=== PATIENT | female | born 1940 | race Caucasian/White ===

== ENCOUNTER 2018-05-02 10:30 | Day surgery (SDC) | payer MEDICARE ==
[~2018-05-02] VITALS: Ht 167.6 cm; Wt 90.3 kg
[~2018-05-02 10:30] MED LIST: ACET325 PO; ASPI325 PO; ASPI81CH; Aspirin EC81 MG PO; BACL10 PO; CALCA500CH; CHOL10002 PO; Flecainide Ace150 MG PO; IBUHYD; LEVSOD50; LEVSOD50 PO; LEVSOD75 PO; LEVSOD88; MAGCHL64ER PO; METO25ER PO; METO50ER PO; NEBI10 PO; PREMARIN; PSYL5.85P; Prilosec Otc20 MG PO; TRAZ50; TUMS PO; WARF5 PO
--- NOTE | 2018-05-02 11:03 | NUR ---
Patient up to Ambulate independently. Gait steady. Surgical site prepped with 2% Chlorhexidine cloth wipe. History, Chart, Medications and Allergies reviewed before start of procedure.Lungs clear T/O to Auscultation. Patient confirms NPO status and agrees with scheduled surgery. Pre-Op teaching done. Pt verbalizes understanding. Patient reports completing Chlorhexadine shower X2 prior to admission to hospital.
--- NOTE | 2018-05-02 18:26 | NUR ---
SHIFT SUMMARY PT ALERT AND ORIENTED SINCE ARRIVAL TO ROOM POST-OP. HER PAIN WAS ELEVATED UPON ARRIVAL TO THE ROOM, HAS BEEN MANAGED WITH PO PAIN MEDICATION. SHE HAS BEEN OOB TO THE BSC AND THE CHIAR. SHE IS A 1 ASSIST WHEN OOB. PT DENIES NAUSEA, TOLERATING PO WELL. VOIDING WELL. VSS. WILL MONITOR UNTIL REPORT TO ONCOMING RN.
[2018-05-03 05:57] LABS: BASOPHILS ABSOLUTE AUTO 0.01 K/mm3 (0.00-0.23); BASOPHILS PERCENT AUTO 0 % (0-2); EOSINOPHILS PERCENT AUTO 0 % (0-6); Hematocrit 32.4 % (33.0-51.0); IMMATURE GRAN ABSOLUTE AUTO 0.03 K/mm3 (0.00-0.10); IMMATURE GRAN PERCENT AUTO 0 % (0-1); LYMPHOCYTES ABSOLUTE AUTO 0.65 K/mm3 (0.84-5.20); LYMPHOCYTES PERCENT AUTO 5 % (21-46); MONOCYTES ABSOLUTE AUTO 0.53 K/mm3 (0.16-1.47); MONOCYTES PERCENT AUTO 4 % (4-13); Mean Corpuscular HGB 31.4 pg (26.0-34.0); Mean Corpuscular Volume 93 fL (80-100); Mean Platelet Volume 9.8 fL (9.1-12.4); NEUTROPHILS ABSOLUTE AUTO 10.91 K/mm3 (1.96-9.15); NEUTROPHILS PERCENT AUTO 90 % (41-73); Platelet Count 223 K/mm3 (150-400); RDW Coefficient Variation 11.9 % (11.7-14.2); RDW Standard Deviation 40.6 fL (35.1-46.3); White Blood Cell Count 12.13 K/mm3 (4.00-11.30)
--- NOTE | 2018-05-03 05:59 | NUR ---
SUMMARY: POD [address] DE LA ROSA. VSS, AFEBRILE, PAIN WELL CONTROLLED WITH PRN OCYCODONE AND SCHEDULED MEDS. PT VOIDING CLEAR YELLOW, AND 1 ASSIST WITH FWW FOR BRP. TOLERATING REG DIET AND DENIES N/V. ANTICIPATE PT/OT THIS DAY AND POSSIBLE DC LATER THIS DAY.
[2018-05-03 06:22] LABS: Anion Gap 7 mmol/L (6-16); Blood Urea Nitrogen 15 mg/dL (8-24); Bun/Creatinine Ratio 25.3 (12.0-20.0); CO2, Blood 26 mmol/L (21-32); Calcium, Blood 8.7 mg/dL (8.5-10.1); Chloride, Blood 101 mmol/L (98-108); Creatinine, Blood 0.59 mg/dL (0.40-1.00); Glomerular Filtration Rate >60 (60-); Glucose, Blood 135 mg/dL (70-99); Sodium, Blood 134 mmol/L (136-145)
--- NOTE | 2018-05-03 08:03 | NUR ---
05/03/18 0803 Letty Campbell VERIFICATIONS: EDIT CHART.
[2018-05-03] MEDS ORDERED: ASPI325 PO (11:15)
[2018-05-03] MEDS ORDERED: Percocet 5-3251 EACH PO (11:17)
--- NOTE | 2018-05-03 15:04 | NUR ---
assumed care of pt, recvd report, pt sitting up in chair awaiting ride home form sister. when sister arrives, discharge teaching will provide teaching and discharge
== END 2018-05-03 15:20 | disposition home or self-care (01) ==
LOC: ORSCMMR 10:30 → ORD 13:00 → ORSCMMR 16:00 → SURS 16:00 → ORSCMMR 05-03 15:20
PROVIDERS: Orthopaedic Surgery
PROC: 0SRC0JA Replacement of Right Knee Joint with Synthetic Substitute, Uncemented, Open Approach (ICD-10-PCS; principal; 2018-05-02 12:00)
DX: M17.11 Unilateral primary osteoarthritis, right knee (principal); Z01.818 Encounter for other preprocedural examination; I10 Essential (primary) hypertension; I48.91 Unspecified atrial fibrillation; E03.9 Hypothyroidism, unspecified; K21.9 Gastro-esophageal reflux disease without esophagitis; Z79.82 Long term (current) use of aspirin; Z79.899 Other long term (current) drug therapy
CPT/HCPCS: 36415; 73560-RT; 80048; 85025; 86850; 86900; 86901; 88300; 97110; 97116; 97162; 97530; C1776; J0171; J0690; J0735; J1100; J1885; J2370; J2405; J2765; J2795; J3010; J7120

== ENCOUNTER 2018-06-09 19:32 | Emergency (ER) | payer MEDICARE ==
[~2018-06-09] VITALS: Ht 167.6 cm; Wt 90.7 kg
[~2018-06-09 19:32] MED LIST changes: +Percocet 5-3251 EACH PO
[2018-06-09] MEDS ORDERED: ASPI81CH PO (19:46)
[2018-06-09 19:58] LABS: BASOPHILS ABSOLUTE AUTO 0.01 K/mm3 (0.00-0.23); BASOPHILS PERCENT AUTO 0 % (0-2); EOSINOPHILS ABSOLUTE AUTO 0.07 K/mm3 (0.00-0.68); EOSINOPHILS PERCENT AUTO 1 % (0-6); Hematocrit 32.8 % (33.0-51.0); Hemoglobin 10.6 g/dL (11.5-16.0); IMMATURE GRAN ABSOLUTE AUTO 0.01 K/mm3 (0.00-0.10); IMMATURE GRAN PERCENT AUTO 0 % (0-1); LYMPHOCYTES ABSOLUTE AUTO 1.32 K/mm3 (0.84-5.20); LYMPHOCYTES PERCENT AUTO 25 % (21-46); MONOCYTES PERCENT AUTO 10 % (4-13); Mean Corpuscular HGB 29.9 pg (26.0-34.0); Mean Corpuscular HGB Conc 32.3 g/dL (31.5-36.5); Mean Corpuscular Volume 93 fL (80-100); Mean Platelet Volume 8.9 fL (9.1-12.4); NEUTROPHILS ABSOLUTE AUTO 3.28 K/mm3 (1.96-9.15); NEUTROPHILS PERCENT AUTO 63 % (41-73); Platelet Count 298 K/mm3 (150-400); RDW Coefficient Variation 12.8 % (11.7-14.2); RDW Standard Deviation 43.9 fL (35.1-46.3); Red Blood Cell Count 3.54 M/mm3 (3.80-5.20); White Blood Cell Count 5.19 K/mm3 (4.00-11.30)
[2018-06-09 20:17] LABS: Alanine Aminotransfer (ALT/SGP 20 U/L (12-78); Albumin, Blood 3.8 g/dL (3.4-5.0); Albumin/Globulin Ratio 1.1 (0.8-1.8); Alk Phos 107 U/L (50-136); Anion Gap 9 mmol/L (6-16); Aspartate Aminotrans (AST/SGOT 14 U/L (12-37); Bilirubin, Total 0.4 mg/dL (0.1-1.0); Blood Urea Nitrogen 14 mg/dL (8-24); Bun/Creatinine Ratio 20.3 (12.0-20.0); CO2, Blood 23 mmol/L (21-32); Calcium, Blood 8.4 mg/dL (8.5-10.1); Chloride, Blood 105 mmol/L (98-108); Creatinine, Blood 0.69 mg/dL (0.40-1.00); Globulin, Blood 3.4 g/dL (2.2-4.0); Glomerular Filtration Rate >60 (60-); Glucose, Blood 104 mg/dL (70-99); Potassium, Blood 3.9 mmol/L (3.5-5.5); Sodium, Blood 137 mmol/L (136-145); Total Protein, Blood 7.2 g/dL (6.4-8.2); Troponin I <0.015 ng/mL (0.000-0.040)
== END 2018-06-09 22:50 | disposition home or self-care (01) ==
LOC: ER 19:32
PROVIDERS: Emergency Medicine
DX: I48.0 Paroxysmal atrial fibrillation (principal); D64.9 Anemia, unspecified; Z88.7 Allergy status to serum and vaccine; Z88.5 Allergy status to narcotic agent; Z79.899 Other long term (current) drug therapy; Z79.82 Long term (current) use of aspirin; E03.9 Hypothyroidism, unspecified; Z86.73 Personal history of transient ischemic attack (TIA), and cerebral infarction without residual deficits
CPT/HCPCS: 36415; 71046; 71260; 80053; 84484; 85025; 93005; 93010; 99285-25; Q9967

== ENCOUNTER → 2018-07-03 | Outpatient (CLI) | payer MEDICARE ==
[~2018-07-03] MED LIST changes: +ASPI81CH PO; +Aspir 8181 MG PO; +Calcium Carbon500 M1 PO; +OMEPRAZOLE MAGN20 MG PO; +Synthroid75 MCG PO; +Vitamin D2000 UNIT PO
[2018-07-03 11:56] LABS: Bilirubin, Urine Neg (Neg); Blood, Urine 2+ (Neg); Glucose Qualitative, Urine Neg (Neg); Ketones, Urine Neg (Neg); Leukocyte Esterase, Urine 3+ (Neg); Nitrite, Urine Neg (Neg); Protein, Urine 1+ (Neg); Urobilinogen, Urine 1+ (Normal)
[2018-07-03 12:08] LABS: Appearance, Urine Clear (Clear); Color, Urine Yellow (P-Yellow)
[2018-07-03 12:14] LABS: Bacteria Mod /hpf; Mucus Mod (0-Heavy); Red Blood Cells, Urine 0-2 /hpf (0-2); Squamous Epithelial Cells Many /hpf (Few)
[2018-07-03 12:15] LABS: Transitional Epithelial Cells Few /hpf (0-Rare)
== END | disposition home or self-care (01) ==
LOC: LAB SHORT 09:00 → LAB SRC 09:00
DX: E03.9 Hypothyroidism, unspecified (principal); I48.91 Unspecified atrial fibrillation
CPT/HCPCS: 81001

== ENCOUNTER 2018-07-11 12:16 | Day surgery (SDC) | payer MEDICARE ==
[~2018-07-11] VITALS: Ht 167.6 cm; Wt 90.7 kg
== END 2018-07-11 14:48 | disposition home or self-care (01) ==
LOC: ORSCSDS 12:16
PROVIDERS: Ophthalmology
PROC: 08RK3JZ Replacement of Left Lens with Synthetic Substitute, Percutaneous Approach (ICD-10-PCS; principal; 2018-07-11 14:00)
DX: H25.12 Age-related nuclear cataract, left eye (principal); H21.81 Floppy iris syndrome; I10 Essential (primary) hypertension; E03.9 Hypothyroidism, unspecified; I48.91 Unspecified atrial fibrillation; Z79.82 Long term (current) use of aspirin; Z79.899 Other long term (current) drug therapy
CPT/HCPCS: J2001; J2250; J3010; V2632

== ENCOUNTER 2019-02-05 08:49 | Emergency (ER) | payer MEDICARE ==
[~2019-02-05] VITALS: Ht 165.1 cm; Wt 90.7 kg
[~2019-02-05 08:49] MED LIST changes: +Flecainide Acet50 MG PO
[2019-02-05 09:43] LABS: BASOPHILS ABSOLUTE AUTO 0.02 K/mm3 (0.00-0.23); BASOPHILS PERCENT AUTO 0 % (0-2); EOSINOPHILS ABSOLUTE AUTO 0.13 K/mm3 (0.00-0.68); EOSINOPHILS PERCENT AUTO 3 % (0-6); Hemoglobin 12.2 g/dL (11.5-16.0); IMMATURE GRAN PERCENT AUTO 0 % (0-1); LYMPHOCYTES ABSOLUTE AUTO 1.33 K/mm3 (0.84-5.20); LYMPHOCYTES PERCENT AUTO 29 % (21-46); MONOCYTES ABSOLUTE AUTO 0.42 K/mm3 (0.16-1.47); MONOCYTES PERCENT AUTO 9 % (4-13); Mean Corpuscular HGB 27.8 pg (26.0-34.0); Mean Corpuscular HGB Conc 32.1 g/dL (31.5-36.5); Mean Corpuscular Volume 87 fL (80-100); Mean Platelet Volume 9.9 fL (9.1-12.4); NEUTROPHILS ABSOLUTE AUTO 2.63 K/mm3 (1.96-9.15); NEUTROPHILS PERCENT AUTO 58 % (41-73); Platelet Count 283 K/mm3 (150-400); RDW Coefficient Variation 13.9 % (11.7-14.2); RDW Standard Deviation 43.7 fL (35.1-46.3); Red Blood Cell Count 4.39 M/mm3 (3.80-5.20); White Blood Cell Count 4.53 K/mm3 (4.00-11.30)
[2019-02-05 10:07] LABS: Alanine Aminotransfer (ALT/SGP 21 U/L (12-78); Albumin, Blood 4.1 g/dL (3.4-5.0); Albumin/Globulin Ratio 1.2 (0.8-1.8); Alk Phos 83 U/L (50-136); Anion Gap 7 mmol/L (6-16); Aspartate Aminotrans (AST/SGOT 18 U/L (12-37); Bilirubin, Total 0.8 mg/dL (0.1-1.0); Blood Urea Nitrogen 15 mg/dL (8-24); Bun/Creatinine Ratio 20.5 (12.0-20.0); CO2, Blood 25 mmol/L (21-32); Calcium, Blood 9.1 mg/dL (8.5-10.1); Chloride, Blood 107 mmol/L (98-108); Creatinine, Blood 0.73 mg/dL (0.40-1.00); Globulin, Blood 3.4 g/dL (2.2-4.0); Glomerular Filtration Rate >60 (60-); Glucose, Blood 97 mg/dL (70-99); Potassium, Blood 3.9 mmol/L (3.5-5.5); Sodium, Blood 139 mmol/L (136-145); Total Protein, Blood 7.5 g/dL (6.4-8.2); Troponin I <0.015 ng/mL (0.000-0.040)
[2019-02-05] MEDS ORDERED: Toprol Xl25 MG PO (13:19)
== END 2019-02-05 13:38 | disposition home or self-care (01) ==
LOC: ER 08:49
PROVIDERS: Emergency Medicine
DX: R07.9 Chest pain, unspecified (principal); E03.9 Hypothyroidism, unspecified; Z88.5 Allergy status to narcotic agent; Z88.7 Allergy status to serum and vaccine; Z79.899 Other long term (current) drug therapy; Z79.82 Long term (current) use of aspirin
CPT/HCPCS: 36415; 71046; 80053; 83690; 83880; 84484; 85025; 93005; 93010; 99284-25

== ENCOUNTER 2019-02-12 01:34 | Observation (INO) | payer MEDICARE ==
[~2019-02-12] VITALS: Ht 167.6 cm; Wt 92.8 kg
[~2019-02-12 01:34] MED LIST changes: +Toprol Xl25 MG PO
[2019-02-12] MEDS ORDERED: AMIODARONE HCL100 MG PO (01:49)
[2019-02-12] MEDS ORDERED: XARELTO20 MG PO (01:49)
[2019-02-12 02:00] LABS: Calcium, Ionized (POC) 1.16 mmol/L (1.10-1.46); Chloride (POC) 105 mmol/L (98-108); Creatinine (POC) 0.8 mg/dL (0.6-1.0); Glucose (ISTAT POC) 94 mg/dL (70-99); Hemoglobin (POC) 10.5 g/dL (12.0-16.0); Potassium (POC) 3.7 mmol/L (3.5-5.5); Sodium (POC) 140 mmol/L (135-148); Total CO2 (POC) 24 mmol/L (21-32)
[2019-02-12 02:04] LABS: Hematocrit 35.8 % (33.0-51.0); Hemoglobin 11.4 g/dL (11.5-16.0); Mean Corpuscular HGB 28.1 pg (26.0-34.0); Mean Corpuscular HGB Conc 31.8 g/dL (31.5-36.5); Mean Corpuscular Volume 88 fL (80-100); Mean Platelet Volume 9.9 fL (9.1-12.4); Platelet Count 242 K/mm3 (150-400); RDW Coefficient Variation 14.1 % (11.7-14.2); RDW Standard Deviation 45.6 fL (35.1-46.3); Red Blood Cell Count 4.06 M/mm3 (3.80-5.20); White Blood Cell Count 5.44 K/mm3 (4.00-11.30)
[2019-02-12 02:19] LABS: Alanine Aminotransfer (ALT/SGP 23 U/L (12-78); Albumin/Globulin Ratio 1.3 (0.8-1.8); Alk Phos 81 U/L (50-136); Anion Gap 7 mmol/L (6-16); Aspartate Aminotrans (AST/SGOT 20 U/L (12-37); Bilirubin, Total 0.5 mg/dL (0.1-1.0); Blood Urea Nitrogen 20 mg/dL (8-24); Bun/Creatinine Ratio 25.8 (12.0-20.0); CHOL/HDL RATIO 2.3; CO2, Blood 26 mmol/L (21-32); Chloride, Blood 107 mmol/L (98-108); Cholesterol 161 mg/dL (50-200); Creatinine, Blood 0.78 mg/dL (0.40-1.00); Globulin, Blood 3.1 g/dL (2.2-4.0); Glomerular Filtration Rate >60 (60-); Glucose, Blood 96 mg/dL (70-99); HDL Cholesterol 69 mg/dL (>39); International Normalized Ratio 1.08; Low Density Lipoprotein Chol 72 mg/dL (0-110); Magnesium, Blood 2.1 mg/dL (1.6-2.4); Potassium, Blood 3.9 mmol/L (3.5-5.5); Prothrombin Time Results 11.4 Sec (9.7-11.5); Sodium, Blood 140 mmol/L (136-145); Total Protein, Blood 7.1 g/dL (6.4-8.2); Triglycerides 100 mg/dL (30-160); Troponin I <0.015 ng/mL (0.000-0.040); Very Low Density Lipoprot Chol 20 mg/dL (6-32)
--- NOTE | 2019-02-12 06:00 | NUR ---
PT ADMITTED TO ICU-5 PCU STATUS FOR ACS. PT IS ON HEPARIN GTT, DOSING WAS VERIFIED W Ketty HAMILTON RN. PT IS ALERT & ORIENTED, DENIES PAIN OR OTHER DISCOMFORT. BP IS SL HIGH, 160-180'S SYSTOLIC. ADMIT HX & MED REC COMPLETED. CALL LIGHT IN REACH. REPORT TO DAYSHIFT.
--- NOTE | 2019-02-12 07:16 | NUR ---
ASSUMED CARE: RECEIVED REPORT FROM OMI RN. PT LYING IN BED TALKING TO FRIEND/FAMILY AT BEDSIDE. PT APPEARS TO BE A/O X3. VSS AT THIS TIME. NO TEMP NOTED. HEPARIN RUNNING PER ORDERS AT 13 UNITS/KG/MIN. WILL CONTINUE TO MONITOR AND ASSESS FURTHER.
--- NOTE | 2019-02-12 08:33 | NUR ---
DR BARBOZA: DR LOPEZ TO SEE THE PT. WILL NOT BE GOING FOR ANGIO TODAY. IF ECHO OR TROP IS ELAVATED PT WILL STAY AND POSSIBLY RECEIVE ANGIO ON SUNDAY EVENING OR SUNDAY MORNING. UNABLE TO DO ANGIO UNTIL 48 HOURS AFTER XERELTO DOSE, PT TOOK XERELTO YESTERDAY AROUND 1200.
--- NOTE | 2019-02-12 08:39 | NUR ---
CONCERNS: PT STATES CONCERNS AND WOULD PREFER TO REMAIN IN THE HOSPITAL UNTIL THE ANGIO IS COMPLETE. PT LIVES ALONE AND FEELS THE STRESS ALONE OF THE UNKNOWN WOULD EFFECT HER HEART. SHE STRESSES SOMETHING WILL HAPPEN WITH HER HEART WHILE ALONE AT HOME AND SHE WILL BE UNABLE TO CALL FOR HELP.
--- NOTE | 2019-02-12 11:00 | NUR ---
HEPARIN RESTART: RESTARTED HEPARIN AT THIS TIME AFTER BEING OFF FOR APPROX 1 HOUR. STARTED AT A NEW RATE OF 11 UNITS/KG/HR PER PHARMACY.
--- NOTE | 2019-02-12 11:49 | NUR ---
DR BARBOZA: DR IN TO SEE PT ONCE AGAIN AFTER REVIEWING CHART. EKG IN PROCESS AT THE TIME. DR EDUCATES ON ANGIO AND INFORMS HER THEY WILL BE DOING THE ANGIO TOMORROW AFTER 12PM.
--- NOTE | 2019-02-12 13:00 | NUR ---
Assumed care; Assumed care of patient and introduced self. She has no current needs or chest pain. Call light within reach and positions self in bed. VSS. Friend sin room with patient.
--- NOTE | 2019-02-12 14:14 | NUR ---
Echocardiogram completed.
--- NOTE | 2019-02-12 15:00 | NUR ---
Patient up to bathroom with assist and denies any pain or concerns. Call light within reach. VSS. Remains on RA and sats in the upper 90%'s.
--- NOTE | 2019-02-12 17:17 | NUR ---
PATIENT SITTING UP IN BED EATING DINNER. SHE WAS UP IN ROOM FOR BATHRROM AND DOING AM CARE. VSS. PULLED RIGHT WRIST IV FOR PROCEDURE TOMORROW. PATIENT DENIES ANY NEEDS OR CHEST PAIN
--- NOTE | 2019-02-12 17:51 | NUR ---
Spiritual Care inital note: Per admit trigger, I met with Mrs. Soliman to offer information about advanced care planning. She has a completed AD. Her passed 2 years ago, and she recognizes the need to assign a new MPOA. She would like her son to be her decision maker if she is incapacitated. We completed a POLST. She would like all medical interventions unless there is no hope for meaningful recovery. She denies fear of uncoming proceedure and seems medically shania when it comes to her health. She feels loved and supported by friends and family. she allowed me to pray for a good outcome tomorow. I will remain available.
--- NOTE | 2019-02-12 18:38 | NUR ---
Patient's heparin increased to 12 units/hr. Patient tired of laying in bed and I got her up to chair where she currently resides. She denies any chest pain or current needs.
--- NOTE | 2019-02-12 19:29 | NUR ---
PT SITTING UP IN CHAIR. DENIES PAIN, SOB, AND N/V. REMOVED IV IN R WRIST IN ANTICIPATION OF RADIAL ACCESS SITE FOR LEAD ANDROID DEVELOPER TOMORROW. WILL GET ANOTHER ONE HIGHER UP THE ARM. STILL HAS 18G TO LAC PATENT AND RUNNING HEPARIN. NO SIGN OF DISTRESS. CALL LIGHT IN REACH AND CALLS APPROPRIATELY.
[2019-02-13 04:19] LABS: BASOPHILS ABSOLUTE AUTO 0.02 K/mm3 (0.00-0.23); BASOPHILS PERCENT AUTO 0 % (0-2); EOSINOPHILS ABSOLUTE AUTO 0.15 K/mm3 (0.00-0.68); EOSINOPHILS PERCENT AUTO 3 % (0-6); Hematocrit 35.2 % (33.0-51.0); Hemoglobin 11.3 g/dL (11.5-16.0); IMMATURE GRAN ABSOLUTE AUTO 0.01 K/mm3 (0.00-0.10); IMMATURE GRAN PERCENT AUTO 0 % (0-1); LYMPHOCYTES ABSOLUTE AUTO 1.52 K/mm3 (0.84-5.20); LYMPHOCYTES PERCENT AUTO 30 % (21-46); MONOCYTES ABSOLUTE AUTO 0.46 K/mm3 (0.16-1.47); MONOCYTES PERCENT AUTO 9 % (4-13); Mean Corpuscular HGB 27.9 pg (26.0-34.0); Mean Corpuscular HGB Conc 32.1 g/dL (31.5-36.5); Mean Corpuscular Volume 87 fL (80-100); Mean Platelet Volume 10.1 fL (9.1-12.4); NEUTROPHILS ABSOLUTE AUTO 2.93 K/mm3 (1.96-9.15); NEUTROPHILS PERCENT AUTO 58 % (41-73); Platelet Count 242 K/mm3 (150-400); RDW Coefficient Variation 14.3 % (11.7-14.2); Red Blood Cell Count 4.05 M/mm3 (3.80-5.20); White Blood Cell Count 5.09 K/mm3 (4.00-11.30)
[2019-02-13 04:35] LABS: Anion Gap 7 mmol/L (6-16); Blood Urea Nitrogen 19 mg/dL (8-24); Bun/Creatinine Ratio 23.9 (12.0-20.0); CO2, Blood 26 mmol/L (21-32); Calcium, Blood 8.6 mg/dL (8.5-10.1); Chloride, Blood 108 mmol/L (98-108); Glomerular Filtration Rate >60 (60-); Glucose, Blood 93 mg/dL (70-99); Potassium, Blood 4.1 mmol/L (3.5-5.5); Sodium, Blood 141 mmol/L (136-145)
--- NOTE | 2019-02-13 06:11 | NUR ---
SUMMARY PT RESTING IN BED. DENIES PAIN, N/V, AND SOB. ON HEPARIN GTT. HAS BEEN NPO SINCE MIDNIGHT FOR LAWN CARE SPECIALIST TODAY. GETS UP WITH MINIMAL 1 PERSON ASSIST. NO SIGN OF DISTRESS. CALL LIGHT IN REACH.
--- NOTE | 2019-02-13 07:15 | NUR ---
ASSUMED CARE / DR BARBOZA: REPORT RECEIVED FROM ERICH Parker RN. ASSUMED CARE OF THIS PT AT APPROX 0700. ON ASSESSMENT, THE PT IS A&O, PLEASANT & COOPERATIVE. SHE DENIES CP OR SOB, VSS. HTN NOTED W/ MEDS GIVEN PER EMAR. NO GI COMPLAINTS, VOIDS W/O DIFFICULTY. PROVIDER AT BEDSIDE TO SEE PT, STS TO D/C HEPARIN DRIP & THAT PT WILL BE GOING TO SHIP MANAGER FOR ANGIO EARLY THIS AM. PT HAS DISCUSSED THIS W/ PROVIDER. WILL CONTINUE TO MONITOR & UPDATE NEEDED.
--- NOTE | 2019-02-13 07:49 | NUR ---
HEPARIN INFUSION: HEPARIN HAS BEEN STOPPED & DISCONNECTED FROM PT AT APPROX [address] BARBOZA.
--- NOTE | 2019-02-13 08:12 | NUR ---
MANAGER LAB: PT TAKEN OUT OF ROOM TO MANAGER LAB VIA BED BY HEART CENTER STAFF.
--- NOTE | 2019-02-13 09:25 | NUR ---
PT ARRIVAL BACK TO UNIT FROM GAS ANALYST THIS RN AND QUILL LAYER AT BEDSIDE FOR PRIMARY RN. PT. ALERT AND ORIENTED UPON ARRIVAL. ARM BOARD REMOVED FOR ASSESSMENT OF TR BAND WITH GAS ANALYST STAFF. PT. HAND NOTED TO BE DARK PURPLE AND COOL TO TOUCH. SPO2 PROBE PLACED TO FINGER WITH POOR WAVEFORM PT. ARM BOARD REMOVED AND SIGNIFICANT SWELLING NOTED ABOVE TR BAND, FIRM TO TOUCH. GAS ANALYST STAFF REPORTED THIS WAS CHANGED FROM PLACEMENT. BP CUFF PLACED TO BELOW AC AND INFLATED FOR 1 MIN FOR ASSISTANCE WITH OCCLUSION, WHILE ADDITIONAL GAS ANALYST STAFF DOWN TO DEFLATE AND REPLACE TR BAND. INITIAL TR BAND DEFLATED WITH BP CUFF INFLATED-NO OOZING NOTED AND NEW TR BAND PLACED BY GAS ANALYST STAFF WITH GOOD COLOR RETURN TO DISTAL FINGERS 15CC IN BAND. SECONDARY TR BAND PLACED ABOVE THE INTIAL WITH 10CC OF AIR. DR. BARBOZA NOTIFIED TO COME EVALUATE. GOOD SPO2 WAVEFORM NOTED WITH GOOD COLOR IMPROVEMENT. NO FURTHER SWELLING NOTED. PRIMARY RN UPDATED AND AT BEDSIDE TO EVALUATE.
--- NOTE | 2019-02-13 09:36 | NUR ---
RETURN FROM HEART CENTER: PT BACK TO ROOM ICU-05 FROM AT APPROX 0920. ON RETURN, IT IS NOTED THAT THE PT's R HAND IS DUSKY W/ POOR CAP REFILL & THAT A HEMATOMA HAS DEVELOPED ABOVE THE TR BAND ON R FOREARM. BP CUFF APPLIED TO ELVA & INFLATED WHILE OLD TR BAND REMOVED & REPLACED W/ LONGER TR BAND INFLATED W/ 15 ML AIR. SECONDARY TR BAND APPLIED SLIGHTLY PROXIMAL TO ORIGINAL BAND & INFLATED W/ 10 ML AIR. HEMATOMA IS IMPROVED & PT NOW HAS GOOD PLETH & CAP REFILL < 3 SECONDS TO AFFECTED HAND. ADD 5 ML AIR TO SECONDARY TR BAND FOR A TOTAL OF 15 ML AIR. PLEASE MASSAGE & HOLD MANUAL PRESSURE TO AREA PROXIMAL TO TR BAND SITES FOR APPROX 3-4 MINS W/ 1-2 MINS REST IN BETWEEN SESSIONS FOR APPROX 30 MINS TOTAL, PER DR BARBOZA, & HE WILL BE AT BEDSIDE SHANTE TO EVAL PT.
--- NOTE | 2019-02-13 09:50 | NUR ---
DR BARBOZA: PROVIDER AT BEDSIDE, STS PLACEMENT OF BOTH TR BANDS ARE ADEQUATE & THAT AIR MAY START TO BE RELEASED IN APPROX 1 HR.
--- NOTE | 2019-02-13 11:11 | NUR ---
PATIENT GAVE STUDENT NURSE PERMISSION TO PROVIDE CARE ON 02/13/19.
--- NOTE | 2019-02-13 18:21 | NUR ---
SHIFT SUMMARY: NO ACUTE CHANGES SINCE PRIOR UPDATES. PT REMAINS A&O, PLEASANT & COOPERATIVE. SHE HAS RESTED WELL THIS AFTERNOON & HAS NO C/O CP OR DISCOMFORT. PT ON RA W/ O2 SATS > 92%. MONITOR SHOWS SB-SR W/ BBB, HR 50-60s. PT HAS NO GI/ COMPLAINTS, VOIDS W/O DIFFICULTY. TOLERATING PO INTAKE WELL. WILL CONTINUE TO MONITOR & REPORT OFF TO ONCOMING RN.
--- NOTE | 2019-02-13 19:49 | NUR ---
PT RESTING IN BED. DENIES CP, SOB, AND N/V. PT HAS R RADIAL ACCESS SITE FROM LUCERNE FARMER TODAY. THERE IS BRUISING TO FOREARM AND DOWN INTO FINGERS THAT RANGES FROM DEEP PURPLE TO LIGHT GREEN. SITE IS SOFT NOW, FINGERS ARE WARM TO TOUCH, AND SPO2 READS 97% ON R INDEX FINGER. ARM BOARD IN PLACE AND PT EXHIBITS KNOWLEDGE OF RADIAL ACCESS CARE. CALL LIGHT IN REACH. NO SIGN OF DISTRESS.
--- NOTE | 2019-02-14 00:16 | NUR ---
PT RESTING IN BED. R RADIAL SITE REMAINS UNCHANGED AND STABLE.
[2019-02-14 04:05] LABS: Anion Gap 5 mmol/L (6-16); Blood Urea Nitrogen 18 mg/dL (8-24); CO2, Blood 26 mmol/L (21-32); Calcium, Blood 8.6 mg/dL (8.5-10.1); Chloride, Blood 107 mmol/L (98-108); Creatinine, Blood 0.75 mg/dL (0.40-1.00); Glomerular Filtration Rate >60 (60-); Glucose, Blood 86 mg/dL (70-99); Magnesium, Blood 2.1 mg/dL (1.6-2.4); Potassium, Blood 4.2 mmol/L (3.5-5.5); Sodium, Blood 138 mmol/L (136-145)
--- NOTE | 2019-02-14 06:25 | NUR ---
SUMMARY PT RESTING IN BED. R RADIAL ACCESS SITE FROM JACK MACHINE OPERATOR HAS BEEN STABLE. IT IS BRUISED IN VARIOUS SPOTS FROM FA TO FINGERS. BRUISING RANGES FROM DEEP PURPLE TO LIGHT GREEN. ARM IS STILL SOFT AND DOES NOT HAVE APPEARED TO CHANGE DURING THE NIGHT. ARM BOARD IN PLACE. ABLE TO GET TO BATHROOM WITH MINIMAL ASSIST ALL NIGHT. NO SIGN OF DISTRESS. CALL LIGHT IN REACH.
[2019-02-14] MEDS ORDERED: ATOR40TA PO (11:05)
[2019-02-14] MEDS ORDERED: CLOP75 PO (11:05)
[2019-02-14] MEDS ORDERED: NITR.4SL SL (11:05)
[2019-02-14] MEDS ORDERED: ASPI81CH PO (11:05)
--- NOTE | 2019-02-14 12:08 | NUR ---
PT GIVEN HER DISCHARGE INSTRUCTIONS. MEDICATIONS REVIEWED AND PT HAD XARELTO AND PLAVIX ORDERED. CALLED DR. HDEZ TO CLARIFY AND HE GAVE ORDERS TO STOP THE PLAVIX AND ONLY HAVE PT TAKE XARELTO. DISCHARGE MEDS UPDATED. PT VERBALIZES UNDERSTANDING OF DISCHARGE INSTRUCTIONS. PT'S RIDE WILL BE HERE AT 1300.
--- NOTE | 2019-02-14 13:02 | NUR ---
PT DISCHARGED VIA WC TO PRIVATE VEHICLE. IVS REMOVED. PT AMBULATORY AND WITHOUT CHEST PAIN AT TIME OF DISCHARGE. ALL BELONGINGS SENT HOME WITH PT.
== END 2019-02-14 12:52 | disposition home or self-care (01) ==
LOC: ER 01:34 → ICUW 01:35 → ICUE 01:35 → ICUW 03:58 → ICUE 03:58 → ER 03:58 → ICUE 03:58 → ICUW 04:00 → ICUE 04:00
PROVIDERS: Emergency Medicine; Family Medicine; ADMIT Hospitalist
DX: I24.9 Acute ischemic heart disease, unspecified (principal); I48.91 Unspecified atrial fibrillation; D64.9 Anemia, unspecified; E03.9 Hypothyroidism, unspecified; I10 Essential (primary) hypertension; E55.9 Vitamin D deficiency, unspecified; Z79.01 Long term (current) use of anticoagulants; Z79.899 Other long term (current) drug therapy; Z88.5 Allergy status to narcotic agent; Z88.7 Allergy status to serum and vaccine
CPT/HCPCS: 36415; 71045; 76937; 80047; 80048; 80053; 80061; 83036; 83735; 84484; 85014; 85025; 85027; 85347; 85610; 85730; 86850; 86900; 86901; 93005; 93010; 93306; 93458; 96365-59; 96375-59; 99152; 99285-25; A9270; C1769; C1894; G0378; J1644; J2250; J2270; J2405; J3010; J7030; Q9967

== ENCOUNTER 2019-03-06 02:37 | Inpatient (IN) | payer MEDICARE ==
[~2019-03-06] VITALS: Ht 167.6 cm; Wt 92.8 kg
[~2019-03-06 02:37] MED LIST changes: +AMIODARONE HCL100 MG PO; +ATOR40TA PO; +CLOP75 PO; +NITR.4SL SL; -Synthroid75 MCG PO; +XARELTO20 MG PO
[2019-03-06 03:01] LABS: BASOPHILS ABSOLUTE AUTO 0.03 K/mm3 (0.00-0.23); BASOPHILS PERCENT AUTO 1 % (0-2); EOSINOPHILS ABSOLUTE AUTO 0.13 K/mm3 (0.00-0.68); EOSINOPHILS PERCENT AUTO 2 % (0-6); Hematocrit 22.5 % (33.0-51.0); IMMATURE GRAN ABSOLUTE AUTO 0.02 K/mm3 (0.00-0.10); IMMATURE GRAN PERCENT AUTO 0 % (0-1); LYMPHOCYTES ABSOLUTE AUTO 1.97 K/mm3 (0.84-5.20); LYMPHOCYTES PERCENT AUTO 33 % (21-46); MONOCYTES ABSOLUTE AUTO 0.51 K/mm3 (0.16-1.47); MONOCYTES PERCENT AUTO 8 % (4-13); Mean Corpuscular HGB 27.8 pg (26.0-34.0); Mean Corpuscular HGB Conc 31.1 g/dL (31.5-36.5); Mean Corpuscular Volume 89 fL (80-100); Mean Platelet Volume 9.2 fL (9.1-12.4); NEUTROPHILS ABSOLUTE AUTO 3.39 K/mm3 (1.96-9.15); NEUTROPHILS PERCENT AUTO 56 % (41-73); Platelet Count 299 K/mm3 (150-400); RDW Coefficient Variation 15.5 % (11.7-14.2); RDW Standard Deviation 50.6 fL (35.1-46.3); Red Blood Cell Count 2.52 M/mm3 (3.80-5.20); White Blood Cell Count 6.05 K/mm3 (4.00-11.30)
[2019-03-06 03:22] LABS: Alanine Aminotransfer (ALT/SGP 21 U/L (12-78); Albumin, Blood 3.7 g/dL (3.4-5.0); Albumin/Globulin Ratio 1.4 (0.8-1.8); Alk Phos 67 U/L (50-136); Anion Gap 7 mmol/L (6-16); Aspartate Aminotrans (AST/SGOT 11 U/L (12-37); Bilirubin, Total 0.6 mg/dL (0.1-1.0); Blood Urea Nitrogen 19 mg/dL (8-24); Bun/Creatinine Ratio 23.3 (12.0-20.0); CO2, Blood 26 mmol/L (21-32); Calcium, Blood 8.8 mg/dL (8.5-10.1); Chloride, Blood 109 mmol/L (98-108); Creatinine, Blood 0.82 mg/dL (0.40-1.00); Globulin, Blood 2.7 g/dL (2.2-4.0); Glomerular Filtration Rate >60 (60-); Glucose, Blood 99 mg/dL (70-99); Potassium, Blood 3.6 mmol/L (3.5-5.5); Sodium, Blood 142 mmol/L (136-145); Total Protein, Blood 6.4 g/dL (6.4-8.2); Troponin I <0.015 ng/mL (0.000-0.040)
--- NOTE | 2019-03-06 05:22 | NUR ---
0522 ADMIT: PT ARRIVES TO ROOM 326 VIA GOURNEY FROM ER AND TRANSFERS SELF TO BED; APPEARS STEADY ON FEET. FRIEND, SUPPORT PERSON, AT BEDSIDE. PT AND FRIEND ORIENTED TO BED, ROOM, CALL SYSTEM AND VERBALIZE UNDERSTANDING. CALL LIGHT IN REACH.
--- NOTE | 2019-03-06 07:00 | NUR ---
0700: FIRST UNIT PRBC INFUSION BEGUN INTO 20G RIGHT AC. VSS, AFEBRILE, ROOM AIR, LUNG SOUNDS CLEAR, IV PATENT. PROTONIX DRIP INFUSING 20G LEFT AC. PT DENIES SOB, HEADACHE, DIZZNESS OR PAIN AT IV SITE. CALL LIGHT IN REACH.
[2019-03-06 13:32] LABS: Hematocrit 26.2 % (33.0-51.0); Hemoglobin 8.3 g/dL (11.5-16.0)
--- NOTE | 2019-03-06 17:27 | NUR ---
SHIFT SUMMARY: PT IS A/O X 4 WITH NO C/O PAIN. PT RECEIVED 1 UNIT OF BLOOD THIS MORNING WITH NO ADVERSE REACTION OBSERVED. THE SECOND UNIT IS READY AT THE BLOOD BLANK BUT PER DR MCCAIN IT MAY OR MAY NOT BE GIVEN DEPENDING ON THE H/H THAT IS DUE THIS EVENING. PT CONTINUES ON CLEAR LIQUID DIET. CONSULT WAS CALLED IN TO DR MARTINEZ WHO STOPPED BY THIS ARCADIO AND STATED HE WOULD COME BACK LATER THIS EVENING TO TALK WITH THE PT. PT DENIES ANY NAUSEA OR DIZZINESS. PT IS ABLE TO MAKE HER NEEDS KNOWN AND CALLS FOR HELP WHEN NEEDED.
[2019-03-06 21:14] LABS: Hematocrit 24.2 % (33.0-51.0); Hemoglobin 7.6 g/dL (11.5-16.0)
--- NOTE | 2019-03-07 04:51 | NUR ---
SHIFT SUMMARY PT RECEIVED 1 UNIT OF BLOOD. TOLERATED WELL. PT ANXIOUS ABOUT DIAGNOSIS AT TIMES NEEDS REASSURANCE. PT HAD NO COMPLAINTS OR ISSUES NOTED DURING SHIFT. PT CURRENTLY SLEEPING, BREATHING EASY AND CALL LIGHT IN REACH
[2019-03-07 05:37] LABS: Hematocrit 27.2 % (33.0-51.0); Hemoglobin 8.7 g/dL (11.5-16.0)
[2019-03-07 16:23] LABS: Hematocrit 30.7 % (33.0-51.0); Hemoglobin 9.9 g/dL (11.5-16.0)
--- NOTE | 2019-03-07 16:46 | NUR ---
Ambulatory in Day SurgeryLungs clear T/O to Auscultatio. History, Chart, Medications and Allergies reviewed before start of procedure.Patient confirms NPO status and agrees with scheduled surgery. Pre-Op teaching done. Pt verbalizes understanding.
--- NOTE | 2019-03-07 16:57 | NUR ---
03/07/19 1655 Bandar Eason PATIENT DETERMINED TO BE ASA APPROPRIATE FOR PROPOFOL SEDATION PRIOR TO START OF PROCEDURE BY 3-LEAD EKG REVIEWED WITH PHYSICIAN PRIOR TO START OF PROCEDURE.Patient to ENDO 1History, Chart, Medications and Allergies reviewed before start of procedure.Glasses RemovedMONITOR INTACT WITH CONTINUOUS PULSE OXIMETRY AND INTERMITTENT BP.O2 VIA N/C INTACT THROUGHOUT SEDATION/PROCEDURE.
--- NOTE | 2019-03-07 18:15 | NUR ---
return from day surg report rec from francisca rn, pt returned to room via clemencia @ 1750, family at bedside, pt denies pain, only c/o gas, sitting up eating clears dinner
--- NOTE | 2019-03-07 18:51 | NUR ---
SHIFT SUMMARY DAGOBERTO AKHTAR COMPLETED THIS SHIFT, DR MARTINEZ CONSULTED W/PT AFTER ROOMED, NO ACUTE CHANGES THIS SHIFT, NO C/O ANY KIND, PT SITTING UP IN BED W/VISITOR @ BEDSIDE, WILL CONT TO MONITOR UNTIL REPORT GIVEN TO OMI RN.
--- NOTE | 2019-03-08 00:02 | NUR ---
PT COMPLAINING OF PALPATIONS. PER SUPERVISOR CHLORINE LIQUEFACTION PT HAS BEEN IN A-FIB >100. PROVIDER RAMANDEEP CALLED AND ORDERED IV LOPRESSOR. PT RESPONDED WELL WITH REDUCTION IN PALPATIONS. SUPERVISOR CHLORINE LIQUEFACTION REPORTS RATE BETWEEN 90-100. PT DENIES CX PAIN OR SOB.
[2019-03-08 04:17] LABS: Hematocrit 28.9 % (33.0-51.0); Hemoglobin 9.3 g/dL (11.5-16.0)
[2019-03-08 04:34] LABS: Anion Gap 8 mmol/L (6-16); Blood Urea Nitrogen 10 mg/dL (8-24); Bun/Creatinine Ratio 11.9 (12.0-20.0); CO2, Blood 25 mmol/L (21-32); Calcium, Blood 8.3 mg/dL (8.5-10.1); Chloride, Blood 110 mmol/L (98-108); Creatinine, Blood 0.84 mg/dL (0.40-1.00); Glomerular Filtration Rate >60 (60-); Glucose, Blood 82 mg/dL (70-99); Potassium, Blood 3.7 mmol/L (3.5-5.5); Sodium, Blood 143 mmol/L (136-145)
--- NOTE | 2019-03-08 05:11 | NUR ---
SHIFT SUMMARY PT HAD SOME ISSUES WITH PALPATIONS T/O SHIFT. PT HAS BEEN IN A-FIB SINCE RETURNING TO FLOOR. PER DIRECTOR PHYSICAL PT RATE WAS REACHING 130'S. PT DENIED CX PAIN, DIZZINESS OR SOB WITH INCREASED RATE. PROVIDER WAS CALLED AND PT TX WITH IV LOPRESSOR. RATE DECREASED TO 90-100. PT RATE WOULD INCREASE WHEN GETTING UP AND GOING TO BATHROOM. PT REPORTS PALPATIONS WOULD SUBSIDE WITH REST WHILE IN BED. PT STATES SHE HAS SIMILAR EXPERIENCES AT HOME AND HER PRIMARY IS AWARE. WILL CONTINUE TO MONITOR AND REPORT TO DAY RN. PT HAD NO OTHER ISSUES NOTED AND IS CURRENTLY SLEEPING. CALL LIGHT IN REACH.
--- NOTE | 2019-03-08 09:46 | NUR ---
INFORMED DR MARCUM THAT PT'S HR HAS BEEN AFIB GOING UP TO 130S/140 WITH EVERY TIME SHE GETS OOB EARLIER THIS SHIFT, BUT SHE HAS CONVERTED TO NSR OF 0900 PER ORE DRYER.
[2019-03-08] MEDS ORDERED: OMEP20ER PO (10:21)
--- NOTE | 2019-03-08 12:46 | NUR ---
DC SUMMARY GARRISON LEAVING BY WC WITH FRIEND TO GO HOME. DENIES PAIN. WAS IN AFIB IN 130S WITH ALL ACTIIVTY THIS MORNING, (AFIB 115 AT REST), BUT CONVERTED TO NSR. DR MARCUM AWARE. JUST GOT UP TO BR, HR STABLE IN NSR WITH ACTIVITY AT THIS POINT. DID PT EDUCATION ON CALLING IF CONVERTS BACK TO AFIB. PIVS REMOVED, TELE OFF, PT DESIRED TO MAKE HER OWN FOLLOW UP WITH HER PCP DR SANTIAGO, BUT SHE NEEDS F/U APPTS WITH GI AND CARDIOLOGY---STICKER PUT AT [facility]AL[employer] ENGINEER FOR CM TO MAKE F/U APPT AFTER WEEKEND OVER. INDEPENDENT IN ROOM, WHEELING OUT IN A FEW MINUTES
== END 2019-03-08 12:58 | disposition home or self-care (01) | DRG 303 ==
LOC: ER 02:37 → MEDS 02:38 → ENPENDDIS 03-08 10:57 → MEDS 03-08 12:58
PROVIDERS: Emergency Medicine; Internal Medicine; Internal Medicine Gastroenterology; ADMIT Internal Medicine
PROC: 30233N1 Transfusion of Nonautologous Red Blood Cells into Peripheral Vein, Percutaneous Approach (ICD-10-PCS; 2019-03-07 16:00)
PROC: 0D598ZZ Destruction of Duodenum, Via Natural or Artificial Opening Endoscopic (ICD-10-PCS; principal; 2019-03-08)
DX: I99.8 Other disorder of circulatory system (principal); I48.91 Unspecified atrial fibrillation; Z79.01 Long term (current) use of anticoagulants; I10 Essential (primary) hypertension; E03.9 Hypothyroidism, unspecified; D50.0 Iron deficiency anemia secondary to blood loss (chronic); E78.5 Hyperlipidemia, unspecified
CPT/HCPCS: 36415; 36430; 80048; 80053; 84484; 85014; 85018; 85025; 86850; 86900; 86901; 86923; 93005; 93010; 96365; 99285-25; C9113; G0378; J2704; J7050; J7120; P9016

== ENCOUNTER 2019-03-26 21:31 | Emergency (ER) | payer MEDICARE ==
[~2019-03-26] VITALS: Ht 167.6 cm; Wt 91.6 kg
[~2019-03-26 21:31] MED LIST changes: +OMEP20ER PO
[2019-03-26 22:10] LABS: BASOPHILS ABSOLUTE AUTO 0.04 K/mm3 (0.00-0.23); BASOPHILS PERCENT AUTO 1 % (0-2); EOSINOPHILS ABSOLUTE AUTO 0.13 K/mm3 (0.00-0.68); EOSINOPHILS PERCENT AUTO 3 % (0-6); Hematocrit 29.6 % (33.0-51.0); Hemoglobin 9.3 g/dL (11.5-16.0); IMMATURE GRAN ABSOLUTE AUTO 0.01 K/mm3 (0.00-0.10); IMMATURE GRAN PERCENT AUTO 0 % (0-1); LYMPHOCYTES ABSOLUTE AUTO 1.44 K/mm3 (0.84-5.20); LYMPHOCYTES PERCENT AUTO 27 % (21-46); MONOCYTES ABSOLUTE AUTO 0.52 K/mm3 (0.16-1.47); MONOCYTES PERCENT AUTO 10 % (4-13); Mean Corpuscular HGB 26.9 pg (26.0-34.0); Mean Corpuscular HGB Conc 31.4 g/dL (31.5-36.5); Mean Corpuscular Volume 86 fL (80-100); Mean Platelet Volume 9.8 fL (9.1-12.4); NEUTROPHILS ABSOLUTE AUTO 3.12 K/mm3 (1.96-9.15); NEUTROPHILS PERCENT AUTO 59 % (41-73); Platelet Count 322 K/mm3 (150-400); RDW Standard Deviation 46.6 fL (35.1-46.3); Red Blood Cell Count 3.46 M/mm3 (3.80-5.20); White Blood Cell Count 5.26 K/mm3 (4.00-11.30)
[2019-03-26] MEDS ORDERED: THERA-D2000 UNIT PO (22:13)
[2019-03-26 22:21] LABS: Alanine Aminotransfer (ALT/SGP 22 U/L (12-78); Albumin, Blood 3.8 g/dL (3.4-5.0); Albumin/Globulin Ratio 1.4 (0.8-1.8); Alk Phos 72 U/L (50-136); Anion Gap 5 mmol/L (6-16); Aspartate Aminotrans (AST/SGOT 15 U/L (12-37); Bilirubin, Total 0.4 mg/dL (0.1-1.0); Blood Urea Nitrogen 16 mg/dL (8-24); Bun/Creatinine Ratio 17.9 (12.0-20.0); CO2, Blood 24 mmol/L (21-32); Calcium, Blood 8.6 mg/dL (8.5-10.1); Chloride, Blood 115 mmol/L (98-108); Globulin, Blood 2.8 g/dL (2.2-4.0); Glomerular Filtration Rate >60 (60-); Glucose, Blood 135 mg/dL (70-99); Potassium, Blood 3.6 mmol/L (3.5-5.5); Sodium, Blood 144 mmol/L (136-145); Total Protein, Blood 6.6 g/dL (6.4-8.2); Troponin I <0.015 ng/mL (0.000-0.040)
== END 2019-03-26 23:48 | disposition home or self-care (01) ==
LOC: ER 21:31
PROVIDERS: Emergency Medicine
DX: I48.91 Unspecified atrial fibrillation (principal); D64.9 Anemia, unspecified; E03.9 Hypothyroidism, unspecified; Z88.7 Allergy status to serum and vaccine; Z88.5 Allergy status to narcotic agent; Z79.899 Other long term (current) drug therapy; Z79.01 Long term (current) use of anticoagulants
CPT/HCPCS: 36415; 71046; 80053; 83880; 84484; 85025; 96374; 99285-25; J7030

== ENCOUNTER 2019-04-06 12:17 | Inpatient (IN) | payer MEDICARE ==
[~2019-04-06] VITALS: Ht 167.6 cm; Wt 92.1 kg
[~2019-04-06 12:17] MED LIST changes: +THERA-D2000 UNIT PO
[2019-04-06 13:02] LABS: BASOPHILS ABSOLUTE AUTO 0.02 K/mm3 (0.00-0.23); BASOPHILS PERCENT AUTO 1 % (0-2); EOSINOPHILS ABSOLUTE AUTO 0.08 K/mm3 (0.00-0.68); EOSINOPHILS PERCENT AUTO 2 % (0-6); Hematocrit 24.6 % (33.0-51.0); Hemoglobin 7.8 g/dL (11.5-16.0); IMMATURE GRAN ABSOLUTE AUTO 0.02 K/mm3 (0.00-0.10); IMMATURE GRAN PERCENT AUTO 1 % (0-1); LYMPHOCYTES ABSOLUTE AUTO 0.76 K/mm3 (0.84-5.20); LYMPHOCYTES PERCENT AUTO 19 % (21-46); MONOCYTES ABSOLUTE AUTO 0.39 K/mm3 (0.16-1.47); MONOCYTES PERCENT AUTO 10 % (4-13); Mean Corpuscular HGB 27.2 pg (26.0-34.0); Mean Corpuscular HGB Conc 31.7 g/dL (31.5-36.5); Mean Corpuscular Volume 86 fL (80-100); Mean Platelet Volume 10.2 fL (9.1-12.4); NEUTROPHILS ABSOLUTE AUTO 2.76 K/mm3 (1.96-9.15); NEUTROPHILS PERCENT AUTO 68 % (41-73); Platelet Count 354 K/mm3 (150-400); RDW Coefficient Variation 14.8 % (11.7-14.2); RDW Standard Deviation 46.7 fL (35.1-46.3); Red Blood Cell Count 2.87 M/mm3 (3.80-5.20); White Blood Cell Count 4.03 K/mm3 (4.00-11.30)
[2019-04-06 13:13] LABS: International Normalized Ratio 1.26; Prothrombin Time Results 13.1 Sec (9.7-11.5)
[2019-04-06 13:16] LABS: Alanine Aminotransfer (ALT/SGP 22 U/L (12-78); Albumin, Blood 3.9 g/dL (3.4-5.0); Albumin/Globulin Ratio 1.4 (0.8-1.8); Alk Phos 66 U/L (50-136); Anion Gap 7 mmol/L (6-16); Aspartate Aminotrans (AST/SGOT 24 U/L (12-37); Bilirubin, Total 0.7 mg/dL (0.1-1.0); Blood Urea Nitrogen 18 mg/dL (8-24); Bun/Creatinine Ratio 22.8 (12.0-20.0); CO2, Blood 26 mmol/L (21-32); Calcium, Blood 8.6 mg/dL (8.5-10.1); Chloride, Blood 107 mmol/L (98-108); Creatinine, Blood 0.79 mg/dL (0.40-1.00); Globulin, Blood 2.8 g/dL (2.2-4.0); Glomerular Filtration Rate >60 (60-); Glucose, Blood 114 mg/dL (70-99); Potassium, Blood 4.4 mmol/L (3.5-5.5); Sodium, Blood 140 mmol/L (136-145); Total Protein, Blood 6.7 g/dL (6.4-8.2)
[2019-04-06 13:30] LABS: Source, Urine Catheter
[2019-04-06 13:33] LABS: Bilirubin, Urine Neg (Neg); Blood, Urine Neg (Neg); Glucose Qualitative, Urine Neg (Neg); Ketones, Urine Neg (Neg); Leukocyte Esterase, Urine 1+ (Neg); Nitrite, Urine Neg (Neg); Protein, Urine Neg (Neg); Urobilinogen, Urine NORM (Normal)
[2019-04-06 13:39] LABS: Appearance, Urine Clear (Clear); Bacteria Mod /hpf; Color, Urine Yellow (P-Yellow); Mucus Light (0-Heavy); Red Blood Cells, Urine Not Seen /hpf (0-2); Squamous Epithelial Cells Few /hpf (Few); White Blood Cells, Urine 0-2 /hpf (0-5)
[2019-04-06] MEDS ORDERED: NITR.4SL SL (14:18)
--- NOTE | 2019-04-06 18:11 | NUR ---
PRBC AND DIET: LATE ENTRY: 170: CALLED DR. BOWSER TO DETERMINE THE NUMBER OF UNITS REQUIRED FOR THE PATIENT (INTITIAL ORDER READ 2 UNITS, FOLLOWED BY AN ORDER THAT READ [address] BOWSER ORDERED TWO UNITS TOTAL FOLLOWED BY A REPEAT H/H. NEW ORDERS ENTERED. CALLED DR. MARTINEZ TO DETERMINE DINNE DIET. PATIENT REPORTED THAT HE STATED SHE COULD "EAT" TONIGHT. NEW ORDER RECEIVED OR CARDIAC DIET TONIGHT. HE REPORTED THAT HE WILL ENTER IN FURTHER DIET ORDERS FOR HER PROCEDURE TOMORROW.
--- NOTE | 2019-04-06 19:38 | NUR ---
END OF SHIFT SUMMARY: PATIENT WAS AN ER ADMIT THIS AFTERNOON. PATIENT ALERT AND ORIENTED. DENIES PAIN OR DISCOMFORT. VERIFIED BLOOD ORDER AND DIET ORDER. PATIENT TOLERATED FIRST UNIT OF PRBCS WELL AND IS TOLERATING SECOND UNIT WELL BY THE END OF THE SHIFT. PATIENT DENIES NAUSEA OR ABDOMINAL DISCOMFORT. PATIENT IS AWARE OF CHANGES TO DIET SHE GETS CLOSER TO TOMORROWS PROCEDURE. PATIENT REPORTED THAT IT HAS BEEN EXPLAINED TO HER THAT SHE MAY NEED TO GO TO [facility] TO HAVE THIS ISSUE COMPLETELY RESOLVED.
[2019-04-06 22:10] LABS: Hematocrit 30.5 % (33.0-51.0); Hemoglobin 9.7 g/dL (11.5-16.0)
[2019-04-07 05:48] LABS: Hematocrit 31.1 % (33.0-51.0); Hemoglobin 9.9 g/dL (11.5-16.0); Mean Corpuscular HGB Conc 31.8 g/dL (31.5-36.5); Mean Corpuscular Volume 85 fL (80-100); Mean Platelet Volume 9.9 fL (9.1-12.4); Platelet Count 296 K/mm3 (150-400); RDW Coefficient Variation 14.6 % (11.7-14.2); RDW Standard Deviation 44.8 fL (35.1-46.3); Red Blood Cell Count 3.66 M/mm3 (3.80-5.20); White Blood Cell Count 5.83 K/mm3 (4.00-11.30)
[2019-04-07 06:22] LABS: Anion Gap 7 mmol/L (6-16); Blood Urea Nitrogen 14 mg/dL (8-24); Bun/Creatinine Ratio 20.3 (12.0-20.0); CO2, Blood 25 mmol/L (21-32); Calcium, Blood 8.6 mg/dL (8.5-10.1); Chloride, Blood 109 mmol/L (98-108); Creatinine, Blood 0.69 mg/dL (0.40-1.00); Glomerular Filtration Rate >60 (60-); Glucose, Blood 89 mg/dL (70-99); Sodium, Blood 141 mmol/L (136-145)
--- NOTE | 2019-04-07 07:20 | NUR ---
SHIFT SUMMARY PT IS A 78 Y/O FEMALE, ADMITTED FOR ACUTE BLOOD LOSS. SHE IS A&O X 4, AND A 1PA IN THE ROOM. PT FINISHED HER SECOND UNIT OF BLOOD DURING THE NIGHT, AND STATES THAT SHE IS FEELING "MUCH BETTER" THIS MORNING. VITAL SIGNS STABLE. PT RECEIVED CONTINUOUS NS @ 100 ML/HR, AND A CONTINOUS PROTONIX IV DRIP. PT IS ON WATER ONLY SINCE 0500 IN PREP FOR AN UPPER ENDOSCOPY TODAY. NO COMPLAINTS OF PAIN, NAUSEA OR SOB. TELE MONITOR SHOWED NSR C BBB IN THE 60S. NO OTHER ACUTE CHANGES IN PT CONDITION NOTED DURING THE NIGHT. REPORT GIVEN TO ONCOMING KARLY.
--- NOTE | 2019-04-07 15:35 | NUR ---
04/07/19 1534 MARIYA PHOENIX History, Chart, Medications and Allergies reviewed before start of procedure.3-LEAD EKG REVIEWED WITH PHYSICIAN PRIOR TO START OF PROCEDURE.O2 VIA N/C INTACT THROUGHOUT SEDATION/PROCEDURE. MONITOR INTACT WITH CONTINUOUS PULSE OXIMETRY AND INTERMITTENT BP.PATIENT DETERMINED TO BE ASA APPROPRIATE FOR PROPOFOL SEDATION PRIOR TO START OF PROCEDURE BY .
--- NOTE | 2019-04-07 15:35 | NUR ---
Patient is lying in bed and alert. Patient immediately tells me about her GI Bleed and her hopes that this can be located and cauterized. Patient tells me about her family ( 3 yrs ago, 1 son and his family in [place] and 1 son and his family in [facility]) and her rastafarian back ground (Espiscopal and Protestant). Patient tells me that several months ago she moved into town from [place] and that she has develpoed a good support network but still would like to find a moravian close to her house. I discussed with her the options around her house. I listen empathically, explore spiritual beliefs, normalize patient's experience and provide companionship, grief support and pre-surgical prayer. I will continue to remain available to patient.
--- NOTE | 2019-04-07 15:39 | NUR ---
Patient up to Ambulate independently. Gait steady. History, Chart, Medications and Allergies reviewed before start of procedure.Lungs clear T/O to Auscultation. Patient confirms NPO status and agrees with scheduled surgery SINCE NOON TODAY.
--- NOTE | 2019-04-07 19:25 | NUR ---
SHIFT SUMMARY GARRISON WENT TO EGD TODAY, PER REPORT, THEY FOUND AN AVM THAT THEY CAUTERIZED. SHE HAS SOME HTN UPON ARRIVAL, PO BP MEDS GIVEN. ON LIQUID DIET UNTIL TOMORROW MORNING, HAS COLONOSCOPY PLANNED FOR TOMORROW. DENIED PAIN FOR THIS SHIFT. INDEPENDENT TO BR. TOOK MEDS PRESCRIBED, CALL LIGHT IN REACH, WCTM
--- NOTE | 2019-04-08 03:59 | NUR ---
04/08/19 0400 AWAKE ON AND OFF DUE TO TRIPS TO FOR VOIDING AND IV PUMPS ALARMING. NO STOOLS NOTED THIS SHIFT SO FAR. INFORMED PT TO LET RN SEE ANY STOOLS SHE HAS SO TO DOCUMENT COLOR AND CONSISTENCY. FOR CHART. PT AGREES. VITALS REMAIN STABLE. PT TO HAVE COLONOSCOPY SUNDAY.
[2019-04-08 04:55] LABS: Hemoglobin 9.4 g/dL (11.5-16.0)
--- NOTE | 2019-04-08 15:48 | NUR ---
PT TRANSPORTED TO COLONOSCOPY VIA STRETCHER ACCOMPANIED BY KARLY NAVAS AND IN NO ACUTE DISTRESS.
--- NOTE | 2019-04-08 16:07 | NUR ---
PT BROUGHT TO DAY SURGERY UNIT FOR PROCEDURE. UPON TAKING VITALS/RHYTHM STRIP, PT IN AFIB 110-140'S WITH PAIN IN BETWEEN HER SHOULDER BLADES. DR. PITTS NOTIFIED AND PROCEDURE CANCELLED. HOSPITALIST DR. BOWMAN NOTIFIED AND ORDERD PATIENT BE TRANSFERED FROM MEDICAL FLOOR TO PCU. PT STATES HISTORY OF AFIB AND STATES "THIS IS WHAT HAPPENS WHEN I AM IN AFIB" AND "I DON'T FEEL SO HOT RIGHT NOW. I FEEL SHORT OF BREATH". O2 PLACED 2L NC, BP 143/84 AT 1611.
--- NOTE | 2019-04-08 16:19 | NUR ---
A&OX4, INDEPENDENT IN ROOM. NO N/V, PAIN, SOB. PT TOLERATED BOWEL PREP WELL THIS AM, STOOL CLEAR/YELLOW WITH NO SEDIMENT AT END OF PREP. NPO AT 1300. PT TO DAY SURGERY FOR EGD THIS AFTERNOON. RECIEVED REPORT FROM DAY SURGERY THAT PT WILL BE TRANSFERED TO PCU FROM DAY SURGERY, AWAITING ROOM ASSIGNMENT TO GIVE REPORT.
--- NOTE | 2019-04-08 16:42 | NUR ---
1627 LOPRESSOR 5MG IV X1 FOLLOWED BY MORPHINE 2MG IV AT 1630, PAIN/DISCOMFORT DECREASES TO 3/10 FROM 8/10 1642 CARDIZEM 5ML/HR INITIATED, REMAINS IN AFIB, PRESSURE/PAIN "GOING AWAY" BUT REMAINS AT 3/10.
--- NOTE | 2019-04-08 17:23 | NUR ---
PT TO UNIT, PCU STATUS, FROM DAY SURGERY. COLONSCOPY SCHEDULED, PT WAS IN AFIB c RVR ON ARRIVAL TO DAY SURGERY. PT ARRIVES TO ICU c DILTIAZEM INFUSING AT 5 MG/HR. RATE 120-130, INCREASED TO 10 MG/HR. PT A&OX 4. ANSWERS QUESTIONS APPROPRIATELY. FOLLOWS COMMANDS. PT STATES CP 05/09. LUNGS CLEAR. HTN NOTED. PT STAND BY ASSIST TO BEDSIDE COMMODE. PLAN FOR COLONSCOPY TOMORROW, GO LYTELY AT 0900 TOMORROW, CLEAR LIQUID DIET UNTIL 1300, NPO AFTER THAT. ORIENTED TO ROOM. CALL LIGHT IN REACH. REPORT TO ONCOMING NURSE.
--- NOTE | 2019-04-08 17:50 | NUR ---
PT CONVERTED TO NSR. CALL PLACED TO UPDATE DR BOWMAN. DILTIAZEM ON STANDBY PER DR BOWMAN.
[2019-04-08 18:16] LABS: Anion Gap 8 mmol/L (6-16); Blood Urea Nitrogen 8 mg/dL (8-24); Bun/Creatinine Ratio 9.8 (12.0-20.0); CO2, Blood 24 mmol/L (21-32); Calcium, Blood 8.4 mg/dL (8.5-10.1); Chloride, Blood 109 mmol/L (98-108); Creatinine, Blood 0.82 mg/dL (0.40-1.00); Glomerular Filtration Rate >60 (60-); Glucose, Blood 89 mg/dL (70-99); Magnesium, Blood 2.2 mg/dL (1.6-2.4); Percent Saturation 6.9 % (15.0-50.0); Potassium, Blood 3.5 mmol/L (3.5-5.5); Sodium, Blood 141 mmol/L (136-145)
--- NOTE | 2019-04-08 19:00 | NUR ---
ASSUMED CARE ASSUMED CARE OF PATIENT. AWAKE AND ALERT. VISITING WITH FAMILY/FRIEND. DENIES C/O PAIN/DISCOMFORT/NAUSEA. REPOSITIONS SELF IN BED. UP TO BATHROOM WITH STAND-BY ASSIST WITHOUT DIFFICULTY. MONITOR SHOWS SB WITH BBB, RATE 50S. BP STABLE. RA SATS STABLE. RESPIRAIONS EVEN AND UNLABORED. SEE SHIFT ASSESSMENT FOR FULL ASSESSMENT.
[2019-04-09 03:27] LABS: BASOPHILS ABSOLUTE AUTO 0.04 K/mm3 (0.00-0.23); BASOPHILS PERCENT AUTO 1 % (0-2); EOSINOPHILS ABSOLUTE AUTO 0.14 K/mm3 (0.00-0.68); EOSINOPHILS PERCENT AUTO 3 % (0-6); Hematocrit 29.8 % (33.0-51.0); Hemoglobin 9.4 g/dL (11.5-16.0); IMMATURE GRAN ABSOLUTE AUTO 0.02 K/mm3 (0.00-0.10); IMMATURE GRAN PERCENT AUTO 0 % (0-1); LYMPHOCYTES ABSOLUTE AUTO 1.33 K/mm3 (0.84-5.20); LYMPHOCYTES PERCENT AUTO 28 % (21-46); MONOCYTES ABSOLUTE AUTO 0.59 K/mm3 (0.16-1.47); MONOCYTES PERCENT AUTO 12 % (4-13); Mean Corpuscular HGB 27.2 pg (26.0-34.0); Mean Corpuscular HGB Conc 31.5 g/dL (31.5-36.5); Mean Corpuscular Volume 86 fL (80-100); Mean Platelet Volume 9.7 fL (9.1-12.4); NEUTROPHILS ABSOLUTE AUTO 2.64 K/mm3 (1.96-9.15); NEUTROPHILS PERCENT AUTO 56 % (41-73); Platelet Count 259 K/mm3 (150-400); RDW Coefficient Variation 14.9 % (11.7-14.2); RDW Standard Deviation 46.9 fL (35.1-46.3); Red Blood Cell Count 3.45 M/mm3 (3.80-5.20); White Blood Cell Count 4.76 K/mm3 (4.00-11.30)
[2019-04-09 03:47] LABS: Alanine Aminotransfer (ALT/SGP 18 U/L (12-78); Albumin, Blood 3.6 g/dL (3.4-5.0); Albumin/Globulin Ratio 1.4 (0.8-1.8); Alk Phos 67 U/L (50-136); Anion Gap 6 mmol/L (6-16); Aspartate Aminotrans (AST/SGOT 14 U/L (12-37); Bilirubin, Total 1.2 mg/dL (0.1-1.0); Blood Urea Nitrogen 8 mg/dL (8-24); Bun/Creatinine Ratio 10.7 (12.0-20.0); CO2, Blood 26 mmol/L (21-32); Calcium, Blood 8.1 mg/dL (8.5-10.1); Chloride, Blood 109 mmol/L (98-108); Creatinine, Blood 0.75 mg/dL (0.40-1.00); Globulin, Blood 2.5 g/dL (2.2-4.0); Glomerular Filtration Rate >60 (60-); Glucose, Blood 79 mg/dL (70-99); Potassium, Blood 3.9 mmol/L (3.5-5.5); Sodium, Blood 141 mmol/L (136-145); Total Protein, Blood 6.1 g/dL (6.4-8.2)
--- NOTE | 2019-04-09 05:52 | NUR ---
SHIFT SUMMARY NO ACUTE CHANGES DURING NOC. SLEPT INTERMITTENTLY. UP AD DONATO IN ROOM WITHOUT DIFFICULTY. VOIDING. NO STOOL DURING SHIFT. NO S/S OF BLEEDING. DENIES C/O PAIN OR NAUSEA. TOLERATING CLEAR LIQUID DIET. PROTONIX INFUSING PER ORDER. NS INFUSING @ 75CC/HR PER ORDER. MONITOR SHOWS NSR WITH BBB AND PROLONGED QT. BP STABLE. RESPIRATIONS EVEN AND UNLABORED. REMAINS ON RA. PLAN IS TO START BOWEL PREP AT 0900 FOR AFTERNOON COLONOSCOPY. WILL REPORT TO DAY SHIFT RN WHEN AVAILABLE.
--- NOTE | 2019-04-09 07:54 | NUR ---
DR. BOWMAN INFORMED THAT PATIENT'S RHYTHM STRIPS LOOKED DIFFERENT DURING THE NIGHT AND THAT IT APPEARS QRS AND QT ARE SLIGHTLY MORE PROLONGED THAN HAD BEEN. STATED THAT WE WILL CONTINUE TO MONITOR AT THIS TIME.
--- NOTE | 2019-04-09 08:20 | NUR ---
INITIAL ASSESSMENT PATIENT ALERT AND ORIENTED X 4, AFEBRILE. PATIENT SBA. PATIENT HAS NO COMPLAINTS OF PAIN OR DISCOMFORT. PATIENT SATTING 90% AND GREATER ON RA. LUNG SOUNDS CLEAR THROUGHOUT. PATIENT IN SR WITH BBB AND PROLONGED QT. HR IN THE 60S. SBP 170S. 1+ EDEMA NOTED IN BLES. PATIENT REFUSING SCDS. GI WNL; GOLYTELY TO BE RESUMED AT 0900 FOR SCOPE TODAY. WNL. SKIN WNL. NS INFUSING AT 75 MLS/ HOUR, PROTONIX AT 10 MLS/ HOUR. BED LOW, CALL LIGHT IN REACH. WILL CONTINUE TO MONITOR PATIENT FREQUENTLY THROUGHOUT SHIFT.
--- NOTE | 2019-04-09 12:49 | NUR ---
PATIENT SITTING ON SIDE OF BED UPON ENTERING ROOM. PATIENT HAS NO COMPLAINTS OF PAIN OR DISCOMFORT. VITAL SIGNS STABLE. PATIENT STOOL IS CLEAR AND LIQUID. BOWEL PREP COMPLETE BEFORE NOON. NO OTHER ACUTE CHANGES TO NOTE ON. WILL CONTINUE TO MONITOR.
--- NOTE | 2019-04-09 13:00 | NUR ---
PATIENT NPO AT THIS TIME FOR IMPENDING SCOPE.
--- NOTE | 2019-04-09 15:45 | NUR ---
DAY SURGERY IN ROOM TO SET UP FOR COLONSCOPY.
--- NOTE | 2019-04-09 16:02 | NUR ---
04/09/19 1602 MARIYA PHOENIX History, Chart, Medications and Allergies reviewed before start of procedure.3-LEAD EKG REVIEWED WITH PHYSICIAN PRIOR TO START OF PROCEDURE.O2 VIA N/C INTACT THROUGHOUT SEDATION/PROCEDURE. MONITOR INTACT WITH CONTINUOUS PULSE OXIMETRY AND INTERMITTENT BP.See Anesthesia record
--- NOTE | 2019-04-09 18:44 | NUR ---
SHIFT SUMMARY PATIENT REMAINED ALERT AND ORIENTED X 4, AFEBRILE. PATIENT INDEPENDENT IN ROOM TO USE TOILET. PATIENT HAD NO COMPLAINTS OF PAIN. PATIENT REMAINED SATTING 90% AND GREATER ON RA. LUNGS REMAINED CLEAR. PATIENT REMAINED IN SR WITH BBB. HR 50S TO 60S. BP REMAINED STABLE. PATIENT HAD MULTIPLE CLEAR, LIQUID STOOLS THIS SHIFT SHE HAD BOWEL PREP FOR COLONOSCOPY. WNL. SKIN WNL. PATIENT HAD POLYPS REMOVED DURING COLONOSCOPY. PATIENT NOW ON CARDIAC DIET. IVS SALINE LOCKED. PATIENT HAS NO COMPLAINTS AT THIS TIME. BED LOW, CALL LIGHT IN REACH. WILL BE GIVING REPORT TO ONCOMING COUNSELLING PSYCHOLOGIST NURSE SHORTLY.
--- NOTE | 2019-04-09 19:15 | NUR ---
ASSUMED CARE BEDSIDE REPORT RECIEVED. PT IS SITTING UP IN BED, AWAKE, ALERT, AND ORIENTED. PT DENIES PAIN OR DISCOMFORT. VSS. IV SALINE LOCKED. NO ACUTE SIGNS OF GI BLEEDING. WILL CONTINUE TO MONITOR.
[2019-04-10 03:55] LABS: BASOPHILS ABSOLUTE AUTO 0.02 K/mm3 (0.00-0.23); BASOPHILS PERCENT AUTO 0 % (0-2); EOSINOPHILS ABSOLUTE AUTO 0.12 K/mm3 (0.00-0.68); EOSINOPHILS PERCENT AUTO 3 % (0-6); Hematocrit 30.2 % (33.0-51.0); Hemoglobin 9.3 g/dL (11.5-16.0); IMMATURE GRAN ABSOLUTE AUTO 0.01 K/mm3 (0.00-0.10); IMMATURE GRAN PERCENT AUTO 0 % (0-1); LYMPHOCYTES ABSOLUTE AUTO 0.98 K/mm3 (0.84-5.20); LYMPHOCYTES PERCENT AUTO 22 % (21-46); MONOCYTES ABSOLUTE AUTO 0.52 K/mm3 (0.16-1.47); MONOCYTES PERCENT AUTO 12 % (4-13); Mean Corpuscular HGB 26.8 pg (26.0-34.0); Mean Corpuscular HGB Conc 30.8 g/dL (31.5-36.5); Mean Corpuscular Volume 87 fL (80-100); Mean Platelet Volume 9.3 fL (9.1-12.4); NEUTROPHILS ABSOLUTE AUTO 2.87 K/mm3 (1.96-9.15); NEUTROPHILS PERCENT AUTO 64 % (41-73); Platelet Count 258 K/mm3 (150-400); RDW Standard Deviation 47.5 fL (35.1-46.3); Red Blood Cell Count 3.47 M/mm3 (3.80-5.20); White Blood Cell Count 4.52 K/mm3 (4.00-11.30)
[2019-04-10 04:15] LABS: Alanine Aminotransfer (ALT/SGP 22 U/L (12-78); Albumin, Blood 3.5 g/dL (3.4-5.0); Albumin/Globulin Ratio 1.4 (0.8-1.8); Alk Phos 66 U/L (50-136); Anion Gap 6 mmol/L (6-16); Aspartate Aminotrans (AST/SGOT 15 U/L (12-37); Bilirubin, Total 0.6 mg/dL (0.1-1.0); Blood Urea Nitrogen 11 mg/dL (8-24); Bun/Creatinine Ratio 13.4 (12.0-20.0); CO2, Blood 27 mmol/L (21-32); Calcium, Blood 8.5 mg/dL (8.5-10.1); Chloride, Blood 109 mmol/L (98-108); Creatinine, Blood 0.82 mg/dL (0.40-1.00); Globulin, Blood 2.5 g/dL (2.2-4.0); Glomerular Filtration Rate >60 (60-); Glucose, Blood 97 mg/dL (70-99); Potassium, Blood 3.7 mmol/L (3.5-5.5); Sodium, Blood 142 mmol/L (136-145)
--- NOTE | 2019-04-10 05:45 | NUR ---
SHIFT SUMMARY NO ACUTE CHANGES THIS SHIFT. PT HAS REMAINED ALERT AND ORIENTED WHEN AWAKE. DENIES PAIN OR DISCOMFORT. VITAL SIGNS HAVE REMAINED STABLE, PT ON ROOM AIR. PT SLEPT OFF AND ON THROUGHOUT THE NIGHT. PT UP TO TOILET IN ROOM INDEPENDENTLY. WILL CONTINUE TO MONITOR AND REPORT OFF TO ONCOMING RN.
--- NOTE | 2019-04-10 08:00 | NUR ---
INITIAL ASSESSMENT PATIENT RESTING QUIETLY IN BED UPON ENTERING ROOM. ALERT AND ORIENTED X 4, AFEBRILE. NO COMPLAINTS OF PAIN OR DISCOMFORT. PATIENT GETTING AROUND WELL IN ROOM INDEPENDENTLY. LUNGS SOUNDS CLEAR. PATIENT SATTING 90% AND GREATER ON RA. 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 HR IN THE 60S. BP STABLE. 1+ EDEMA TO BLES. GI WNL. WNL. SKIN WNL. IV SALINE LOCKED. BED LOW, CALL LIGHT IN REACH. WILL CONTINUE TO MONITOR PATIENT FREQUENTLY THROUGHOUT SHIFT.
[2019-04-10] MEDS ORDERED: DILT60ER PO (08:43)
[2019-04-10] MEDS ORDERED: FAMO20 PO (08:45)
[2019-04-10] MEDS ORDERED: CLOP75 PO (09:31)
--- NOTE | 2019-04-10 10:35 | NUR ---
SHIFT SUMMARY PATIENT REMAINED ALERT AND ORIENTED, AFEBRILE. PATIENT REMAINED WALKING AROUND INDEPENDENTLY IN ROOM. PATIENT HAD NO COMPLAINTS OF PAIN. VITAL SIGNS REMAINED STABLE. IV REMOVED. PATENT EDUCATED ON DISCHARGE INSTRUCTIONS AND EDUCATION. PATIENT TAKEN OUT TO FRIEND'S CAR WHO WAS HERE TO PICK HER UP. DISCHARGE COMPLETE.
== END 2019-04-10 10:35 | disposition home or self-care (01) | DRG 378 ==
LOC: ER 12:17 → ICUE 14:33 → MEDS 14:33 → ICUE 04-08 16:55
PROVIDERS: Emergency Medicine; Internal Medicine; Nurse Practitioner Acute Care; ADMIT Internal Medicine
PROC: 30233N1 Transfusion of Nonautologous Red Blood Cells into Peripheral Vein, Percutaneous Approach (ICD-10-PCS; principal; 2019-04-06)
PROC: 0W3P8ZZ Control Bleeding in Gastrointestinal Tract, Via Natural or Artificial Opening Endoscopic (ICD-10-PCS; 2019-04-07)
PROC: 0DBK8ZZ Excision of Ascending Colon, Via Natural or Artificial Opening Endoscopic (ICD-10-PCS; 2019-04-09)
DX: K55.21 Angiodysplasia of colon with hemorrhage (principal); D62 Acute posthemorrhagic anemia; E03.9 Hypothyroidism, unspecified; I10 Essential (primary) hypertension; I48.0 Paroxysmal atrial fibrillation; K21.9 Gastro-esophageal reflux disease without esophagitis; J30.2 Other seasonal allergic rhinitis; K57.90 Diverticulosis of intestine, part unspecified, without perforation or abscess without bleeding; K64.4 Residual hemorrhoidal skin tags
CPT/HCPCS: 36415; 36430; 71045; 80048; 80053; 81001; 82728; 83540; 83550; 83735; 84443; 84484; 85014; 85018; 85025; 85027; 85610; 85730; 86850; 86900; 86901; 86923; 87086; 88305; 93005; 93010; 96365; 96366; 99285-25; A9270; C9113; J2270; J2370; J2704; J2916; J7030; J7050; J7120; P9016

== ENCOUNTER → 2019-05-24 | Outpatient (CLI) | payer MEDICARE ==
[~2019-05-24] MED LIST changes: +DILT60ER PO; +FAMO20 PO
[2019-05-27 14:38] LABS: Stool Occult Bld Immuno 1 Negative (NEGATIVE); Stool Occult Bld Immuno 2 Negative (NEGATIVE)
== END ==
LOC: LAB SHORT 09:30 → LAB 09:30 → LAB FUT 04-22 12:35
PROVIDERS: Internal Medicine Gastroenterology
DX: D62 Acute posthemorrhagic anemia (principal)
CPT/HCPCS: 82274

== ENCOUNTER → 2019-05-27 | Outpatient (CLI) | payer MEDICARE | END | disposition home or self-care (01) | LOC: LAB SHORT 12:38 → LAB 12:38 | DX: R30.0 Dysuria (principal) | CPT/HCPCS: 87077; 87086; 87186 ==

== ENCOUNTER → 2021-04-07 | Outpatient (CLI) | payer OTHER ==
[2021-04-08 08:56] LABS: Stool Occult Bld Immuno 1 Negative (NEGATIVE)
== END | disposition home or self-care (01) ==
LOC: LAB SHORT 13:30
PROVIDERS: Family Medicine
DX: Z12.11 Encounter for screening for malignant neoplasm of colon (principal)
CPT/HCPCS: G0328

== ENCOUNTER 2022-02-22 08:11 | Emergency (ER) | payer OTHER ==
[~2022-02-22] VITALS: Ht 167.6 cm; Wt 90.3 kg
[~2022-02-22 08:11] MED LIST changes: -AMIODARONE HCL100 MG PO; +Amiodarone HCl200 MG PO
[2022-02-22] MEDS ORDERED: TOPROL XL50 MG PO (08:26)
[2022-02-22 08:54] LABS: BASOPHILS ABSOLUTE AUTO 0.02 K/mm3 (0.00-0.23); BASOPHILS PERCENT AUTO 1 % (0-2); EOSINOPHILS ABSOLUTE AUTO 0.09 K/mm3 (0.00-0.68); EOSINOPHILS PERCENT AUTO 3 % (0-6); Hematocrit 35.1 % (33.0-51.0); IMMATURE GRAN ABSOLUTE AUTO 0.01 K/mm3 (0.00-0.10); IMMATURE GRAN PERCENT AUTO 0 % (0-1); LYMPHOCYTES ABSOLUTE AUTO 0.97 K/mm3 (0.84-5.20); LYMPHOCYTES PERCENT AUTO 29 % (21-46); MONOCYTES ABSOLUTE AUTO 0.35 K/mm3 (0.16-1.47); MONOCYTES PERCENT AUTO 10 % (4-13); Mean Corpuscular HGB 31.3 pg (26.0-34.0); Mean Corpuscular HGB Conc 34.2 g/dL (31.5-36.5); Mean Corpuscular Volume 92 fL (80-100); Mean Platelet Volume 9.5 fL (9.1-12.4); NEUTROPHILS ABSOLUTE AUTO 1.96 K/mm3 (1.96-9.15); NEUTROPHILS PERCENT AUTO 58 % (41-73); Platelet Count 226 K/mm3 (150-400); RDW Coefficient Variation 13.3 % (11.7-14.2); RDW Standard Deviation 44.7 fL (35.1-46.3); Red Blood Cell Count 3.83 M/mm3 (3.80-5.20)
[2022-02-22 09:12] LABS: Albumin, Blood 3.5 g/dL (3.4-5.0); Albumin/Globulin Ratio 1.3 (0.8-1.8); Bilirubin, Total 0.7 mg/dL (0.1-1.0); Bun/Creatinine Ratio 18.9 (12.0-20.0); Creatinine, Blood 0.74 mg/dL (0.40-1.00); Globulin, Blood 2.7 g/dL (2.2-4.0); Potassium, Blood 3.2 mmol/L (3.5-5.5); Total Protein, Blood 6.2 g/dL (6.4-8.2)
[2022-02-22 10:23] LABS: Influenza A, PCR NEGATIVE (NEGATIVE); Influenza B, PCR NEGATIVE (NEGATIVE); Resp Syncytial Virus, PCR NEGATIVE (NEGATIVE); SARS-Cov-2 (COVID-19) PCR, MMC NEGATIVE (NEGATIVE)
== END 2022-02-22 12:49 | disposition home or self-care (01) ==
LOC: ER 08:11
PROVIDERS: Student in an Organized Health Care Education/Training Program
DX: I48.0 Paroxysmal atrial fibrillation (principal); E87.6 Hypokalemia; I10 Essential (primary) hypertension; E03.9 Hypothyroidism, unspecified; Z20.822 Contact with and (suspected) exposure to COVID-19; Z88.7 Allergy status to serum and vaccine; Z88.5 Allergy status to narcotic agent; Z79.899 Other long term (current) drug therapy
CPT/HCPCS: 0241U; 71046; 80053; 83735; 84484; 85025; 93005; 93010; A9270; J3480; J7030

== ENCOUNTER 2022-08-21 09:07 | Day surgery (SDC) | payer OTHER ==
[~2022-08-21] VITALS: Ht 167.6 cm; Wt 91.9 kg
[~2022-08-21 09:07] MED LIST changes: +TOPROL XL50 MG PO
[2022-08-21] MEDS ORDERED: OMEP20ER (09:43)
[2022-08-21] MEDS ORDERED: PRAM.125 (09:43)
[2022-08-21 12:03] VITALS: BP 121/60
== END 2022-08-21 11:50 | disposition home or self-care (01) ==
LOC: ORSCSDS 09:07
PROVIDERS: Internal Medicine Gastroenterology
PROC: 0DBF8ZX Excision of Right Large Intestine, Via Natural or Artificial Opening Endoscopic, Diagnostic (ICD-10-PCS; principal; 2022-08-21 10:30)
DX: Z12.11 Encounter for screening for malignant neoplasm of colon (principal); Z86.010 Personal history of colon polyps; Z80.0 Family history of malignant neoplasm of digestive organs; K57.30 Diverticulosis of large intestine without perforation or abscess without bleeding; I48.91 Unspecified atrial fibrillation; Z86.73 Personal history of transient ischemic attack (TIA), and cerebral infarction without residual deficits; Z79.899 Other long term (current) drug therapy
CPT/HCPCS: 88305; J2704; J7120

== ENCOUNTER 2023-05-06 16:09 | Inpatient (IN) | payer OTHER ==
[~2023-05-06] VITALS: Ht 165.1 cm; Wt 86.4 kg
[~2023-05-06 16:09] MED LIST changes: +OMEP20ER; +PRAM.125
[2023-05-06 16:52] LABS: BASOPHILS ABSOLUTE AUTO 0.01 K/mm3 (0.00-0.23); BASOPHILS PERCENT AUTO 0 % (0-2); EOSINOPHILS PERCENT AUTO 0 % (0-6); Hematocrit 23.8 % (33.0-51.0); Hemoglobin 7.2 g/dL (11.5-16.0); IMMATURE GRAN ABSOLUTE AUTO 0.06 K/mm3 (0.00-0.10); IMMATURE GRAN PERCENT AUTO 1 % (0-1); LYMPHOCYTES ABSOLUTE AUTO 0.59 K/mm3 (0.84-5.20); LYMPHOCYTES PERCENT AUTO 8 % (21-46); MONOCYTES ABSOLUTE AUTO 0.65 K/mm3 (0.16-1.47); MONOCYTES PERCENT AUTO 9 % (4-13); Mean Corpuscular HGB Conc 30.3 g/dL (31.5-36.5); Mean Corpuscular Volume 73 fL (80-100); Mean Platelet Volume 9.4 fL (9.1-12.4); NEUTROPHILS ABSOLUTE AUTO 5.84 K/mm3 (1.96-9.15); NEUTROPHILS PERCENT AUTO 82 % (41-73); NRBC ABSOLUTE 0.03 K/mm3 (0.00-0.02); NRBC Auto 0.4 /100 WBC (0.0-0.2); Platelet Count 191 K/mm3 (150-400); RDW Coefficient Variation 17.7 % (11.7-14.2); RDW Standard Deviation 46.8 fL (35.1-46.3); Red Blood Cell Count 3.28 M/mm3 (3.80-5.20); White Blood Cell Count 7.15 K/mm3 (4.00-11.30)
[2023-05-06 17:19] LABS: Albumin, Blood 3.8 g/dL (3.4-5.0); Albumin/Globulin Ratio 1.2 (0.8-1.8); Bilirubin, Total 0.8 mg/dL (0.1-1.0); Bun/Creatinine Ratio 21.7 (12.0-20.0); Calcium, Blood 8.2 mg/dL (8.5-10.1); Creatinine, Blood 0.69 mg/dL (0.40-1.00); Globulin, Blood 3.1 g/dL (2.2-4.0); Potassium, Blood 3.3 mmol/L (3.5-5.5); Total Protein, Blood 6.9 g/dL (6.4-8.2)
[2023-05-06 17:25] LABS: Influenza A, PCR NEGATIVE (NEGATIVE); Influenza B, PCR NEGATIVE (NEGATIVE); Resp Syncytial Virus, PCR NEGATIVE (NEGATIVE); SARS-Cov-2 (COVID-19) PCR, MMC NEGATIVE (NEGATIVE)
[2023-05-06 17:54] LABS: Percent Saturation 3.8 % (15.0-50.0)
[2023-05-07] VITALS (8 sets, daily range): BP systolic 124–143; BP diastolic 57–95
[2023-05-07 02:42] LABS: Hematocrit 22.7 % (33.0-51.0); Mean Corpuscular HGB Conc 30.8 g/dL (31.5-36.5); Mean Corpuscular Volume 71 fL (80-100); Mean Platelet Volume 9.1 fL (9.1-12.4); NRBC ABSOLUTE 0.03 K/mm3 (0.00-0.02); NRBC Auto 0.4 /100 WBC (0.0-0.2); Platelet Count 166 K/mm3 (150-400); RDW Coefficient Variation 17.5 % (11.7-14.2); RDW Standard Deviation 45.3 fL (35.1-46.3); Red Blood Cell Count 3.18 M/mm3 (3.80-5.20); White Blood Cell Count 7.47 K/mm3 (4.00-11.30)
[2023-05-07 02:58] LABS: Bun/Creatinine Ratio 17.7 (12.0-20.0); Calcium, Blood 7.8 mg/dL (8.5-10.1); Creatinine, Blood 0.74 mg/dL (0.40-1.00); Potassium, Blood 3.4 mmol/L (3.5-5.5)
--- NOTE | 2023-05-07 05:31 | NUR ---
EOS: PATIENT LEFT WITH EMS APPROXIMATELY 0515, BLOOD STILL INFUSING, PATIENT OVERALL STATUS IMPROVING, DENIES CHEST PAIN PRESSURE OR SOB. AFEBRILE, BLOOD PRESSURE STABLE 2L VIA NC FOR SPO2 >95%. PATIENT REPOSITIONED OFTEN, Q1-2 AND POWERGLIDE PLACED TO THE LEFT UPPER ARM 18/10 FOR SECOND CONFIMRED IV SITE. PATIENT COOPERATIVE WITH CARE PLEASANT ALERT AND ORIENTED, EMS GIVEN FULL BEDSIDE REPORT WITH NO CONCERNS OR QUESTIONS.
--- NOTE | 2023-05-07 05:49 | NUR ---
PUMP ID [id number] [facility] EMERGENCY DEPARTMENT,
== END 2023-05-07 05:15 | disposition short-term general hospital (02) | DRG 193 ==
LOC: ER 16:09 → PCU 23:38
PROVIDERS: Student in an Organized Health Care Education/Training Program; ADMIT Internal Medicine
DX: J18.9 Pneumonia, unspecified organism (principal); J96.01 Acute respiratory failure with hypoxia; K92.2 Gastrointestinal hemorrhage, unspecified; E87.6 Hypokalemia; I48.0 Paroxysmal atrial fibrillation; I10 Essential (primary) hypertension; E03.9 Hypothyroidism, unspecified; K58.9 Irritable bowel syndrome, unspecified; D50.9 Iron deficiency anemia, unspecified; Z88.7 Allergy status to serum and vaccine; Z88.5 Allergy status to narcotic agent; Z79.02 Long term (current) use of antithrombotics/antiplatelets; Z79.890 Hormone replacement therapy; Z11.52 Encounter for screening for COVID-19
CPT/HCPCS: 0241U; 36415; 36430; 71046; 80048; 80053; 82272; 82947; 83540; 83550; 83605; 83735; 83880; 84145; 84484; 85025; 85027; 86850; 86900; 86901; 86923; 93005; 93010; 94640; 94664; 94762; 96365; 96366; 96367; 96375; 99285-25; A9270; C1751; C9113; J0456; J0696; J1940; J2916; J2930; J3480; J7030; J7050; P9016

== ENCOUNTER 2024-02-02 00:41 | Emergency (ER) | payer OTHER ==
[~2024-02-02] VITALS: Ht 167.6 cm; Wt 83.9 kg
[2024-02-02 01:38] LABS: BASOPHILS ABSOLUTE AUTO 0.04 K/mm3 (0.00-0.23); BASOPHILS PERCENT AUTO 1 % (0-2); EOSINOPHILS PERCENT AUTO 2 % (0-6); Hematocrit 39.1 % (33.0-51.0); Hemoglobin 13.1 g/dL (11.5-16.0); IMMATURE GRAN ABSOLUTE AUTO 0.01 K/mm3 (0.00-0.10); IMMATURE GRAN PERCENT AUTO 0 % (0-1); LYMPHOCYTES ABSOLUTE AUTO 1.44 K/mm3 (0.84-5.20); LYMPHOCYTES PERCENT AUTO 35 % (21-46); MONOCYTES ABSOLUTE AUTO 0.43 K/mm3 (0.16-1.47); MONOCYTES PERCENT AUTO 11 % (4-13); Mean Corpuscular HGB 31.8 pg (26.0-34.0); Mean Corpuscular HGB Conc 33.5 g/dL (31.5-36.5); Mean Corpuscular Volume 95 fL (80-100); Mean Platelet Volume 9.1 fL (9.1-12.4); NEUTROPHILS ABSOLUTE AUTO 2.07 K/mm3 (1.96-9.15); NEUTROPHILS PERCENT AUTO 51 % (41-73); Platelet Count 234 K/mm3 (150-400); RDW Coefficient Variation 12.9 % (11.7-14.2); RDW Standard Deviation 44.9 fL (35.1-46.3); Red Blood Cell Count 4.12 M/mm3 (3.80-5.20); White Blood Cell Count 4.09 K/mm3 (4.00-11.30)
[2024-02-02 01:58] LABS: Bun/Creatinine Ratio 25.3 (12.0-20.0); Calcium, Blood 9.2 mg/dL (8.5-10.1); Creatinine, Blood 0.79 mg/dL (0.40-1.00); Potassium, Blood 4.1 mmol/L (3.5-5.5)
[2024-02-02 02:39] LABS: Source, Urine Clean Catch
[2024-02-02 02:47] LABS: Bilirubin, Urine Neg (Neg); Blood, Urine Neg (Neg); Glucose Qualitative, Urine Neg (Neg); Ketones, Urine Neg (Neg); Leukocyte Esterase, Urine 1+ (Neg); Nitrite, Urine Neg (Neg); Protein, Urine Neg (Neg); Urobilinogen, Urine NORM (Normal)
[2024-02-02 02:53] LABS: Appearance, Urine Clear (Clear); Color, Urine Pale Yellow (P-Yellow)
[2024-02-02 02:54] LABS: Bacteria Mod /hpf; Red Blood Cells, Urine 0-2 /hpf (0-2); Squamous Epithelial Cells Few /hpf (Few); White Blood Cells, Urine 0-2 /hpf (0-5)
[2024-02-02 04:26] VITALS: BP 136/64
== END 2024-02-02 04:56 | disposition home or self-care (01) ==
LOC: ER 00:41
PROVIDERS: Student in an Organized Health Care Education/Training Program
DX: I10 Essential (primary) hypertension (principal); E03.9 Hypothyroidism, unspecified; I48.91 Unspecified atrial fibrillation; Z79.02 Long term (current) use of antithrombotics/antiplatelets; Z79.899 Other long term (current) drug therapy; Z88.7 Allergy status to serum and vaccine; Z88.5 Allergy status to narcotic agent; Z88.8 Allergy status to other drugs, medicaments and biological substances
CPT/HCPCS: 70450; 80048; 81001; 82947; 85025; 87086; 93005; 93010; 99284-25

== ENCOUNTER 2024-06-18 22:45 | Emergency (ER) | payer OTHER ==
[~2024-06-18] VITALS: Ht 165.1 cm; Wt 87.1 kg
[2024-06-18 23:21] LABS: BASOPHILS ABSOLUTE AUTO 0.03 K/mm3 (0.00-0.23); BASOPHILS PERCENT AUTO 1 % (0-2); EOSINOPHILS ABSOLUTE AUTO 0.08 K/mm3 (0.00-0.68); EOSINOPHILS PERCENT AUTO 2 % (0-6); Hematocrit 36.2 % (33.0-51.0); Hemoglobin 12.3 g/dL (11.5-16.0); IMMATURE GRAN ABSOLUTE AUTO 0.02 K/mm3 (0.00-0.10); IMMATURE GRAN PERCENT AUTO 0 % (0-1); LYMPHOCYTES ABSOLUTE AUTO 1.69 K/mm3 (0.84-5.20); LYMPHOCYTES PERCENT AUTO 35 % (21-46); MONOCYTES ABSOLUTE AUTO 0.63 K/mm3 (0.16-1.47); MONOCYTES PERCENT AUTO 13 % (4-13); Mean Corpuscular HGB 31.6 pg (26.0-34.0); Mean Corpuscular Volume 93 fL (80-100); NEUTROPHILS PERCENT AUTO 50 % (41-73); Platelet Count 278 K/mm3 (150-400); RDW Coefficient Variation 12.5 % (11.7-14.2); RDW Standard Deviation 42.7 fL (35.1-46.3); Red Blood Cell Count 3.89 M/mm3 (3.80-5.20); White Blood Cell Count 4.85 K/mm3 (4.00-11.30)
[2024-06-18 23:30] LABS: CORONAVIRUS COVID-19 AG Negative (NEGATIVE); INFLUENZA A AG Negative (NEGATIVE); INFLUENZA B AG Negative (NEGATIVE)
[2024-06-18 23:31] LABS: Albumin/Globulin Ratio 1.3 (0.8-1.8); Bilirubin, Total 0.5 mg/dL (0.1-1.0); Bun/Creatinine Ratio 12.1 (12.0-20.0); Calcium, Blood 9.5 mg/dL (8.5-10.1); Creatinine, Blood 1.73 mg/dL (0.40-1.00); Globulin, Blood 3.1 g/dL (2.2-4.0); Potassium, Blood 4.2 mmol/L (3.5-5.5); Total Protein, Blood 7.1 g/dL (6.4-8.2)
[2024-06-19] MEDS ORDERED: NS 1,000 ML IV SCH (00:40)
[2024-06-19 01:51] LABS: Source, Urine Clean Catch
[2024-06-19 02:17] LABS: Bilirubin, Urine Neg (Neg); Blood, Urine Neg (Neg); Glucose Qualitative, Urine Neg (Neg); Ketones, Urine Neg (Neg); Leukocyte Esterase, Urine Neg (Neg); Nitrite, Urine Neg (Neg); Protein, Urine Neg (Neg); Urobilinogen, Urine NORM (Normal)
[2024-06-19 02:22] LABS: Appearance, Urine Clear (Clear); Color, Urine Yellow (P-Yellow)
[2024-06-19 03:00] VITALS: BP 146/66
== END 2024-06-19 03:10 | disposition home or self-care (01) ==
LOC: ER 22:45
PROVIDERS: Emergency Medicine
DX: E86.0 Dehydration (principal); M54.9 Dorsalgia, unspecified; G89.29 Other chronic pain; I48.91 Unspecified atrial fibrillation; I10 Essential (primary) hypertension; E03.9 Hypothyroidism, unspecified; Z79.02 Long term (current) use of antithrombotics/antiplatelets; Z79.899 Other long term (current) drug therapy; Z88.7 Allergy status to serum and vaccine; Z88.5 Allergy status to narcotic agent
CPT/HCPCS: 80053; 81003; 84484; 85025; 87428-QW; 93005; 93010; 96374-59; 99284-25; J7030

== ENCOUNTER 2025-01-26 00:12 | Emergency (ER) | payer OTHER ==
[~2025-01-26] VITALS: Ht 167.6 cm; Wt 81.7 kg
[2025-01-26 00:28] LABS: BASOPHILS ABSOLUTE AUTO 0.02 K/mm3 (0.00-0.23); BASOPHILS PERCENT AUTO 0 % (0-2); EOSINOPHILS ABSOLUTE AUTO 0.08 K/mm3 (0.00-0.68); EOSINOPHILS PERCENT AUTO 2 % (0-6); Hematocrit 34.7 % (33.0-51.0); Hemoglobin 11.8 g/dL (11.5-16.0); IMMATURE GRAN ABSOLUTE AUTO 0.01 K/mm3 (0.00-0.10); IMMATURE GRAN PERCENT AUTO 0 % (0-1); LYMPHOCYTES ABSOLUTE AUTO 1.43 K/mm3 (0.84-5.20); LYMPHOCYTES PERCENT AUTO 32 % (21-46); MONOCYTES ABSOLUTE AUTO 0.45 K/mm3 (0.16-1.47); MONOCYTES PERCENT AUTO 10 % (4-13); Mean Corpuscular HGB Conc 34.0 g/dL (31.5-36.5); Mean Corpuscular Volume 94 fL (80-100); NEUTROPHILS ABSOLUTE AUTO 2.55 K/mm3 (1.96-9.15); NEUTROPHILS PERCENT AUTO 56 % (41-73); NRBC ABSOLUTE 0.00 K/mm3 (0.00-0.02); NRBC Auto 0.0 /100 WBC (0.0-0.2); Platelet Count 219 K/mm3 (150-400); RDW Coefficient Variation 13.3 % (11.7-14.2); RDW Standard Deviation 45.8 fL (35.1-46.3)
[2025-01-26] MEDS ORDERED: LOSA50 PO (00:36)
[2025-01-26] MEDS ORDERED: OMEP20ER PO (00:37)
[2025-01-26 00:47] LABS: Alanine Aminotransfer (ALT/SGP 27.0 U/L (12-78); Albumin, Blood 3.7 g/dL (3.4-5.0); Albumin/Globulin Ratio 1.4 (0.8-1.8); Anion Gap 8.0 mmol/L (3-11); Aspartate Aminotrans (AST/SGOT 20.0 U/L (12-37); Bilirubin, Total 0.6 mg/dL (0.1-1.0); Blood Urea Nitrogen 22.0 mg/dL (8-24); CO2, Blood 27.0 mmol/L (21-32); Calcium, Blood 8.6 mg/dL (8.5-10.1); Chloride, Blood 103.0 mmol/L (98-108); Creatinine, Blood 0.93 mg/dL (0.40-1.00); Globulin, Blood 2.7 g/dL (2.2-4.0); Glucose, Blood 244.0 mg/dL (70-99); Potassium, Blood 3.8 mmol/L (3.5-5.5); Sodium, Blood 134.0 mmol/L (136-145); Total Protein, Blood 6.4 g/dL (6.4-8.2)
[2025-01-26 03:30] VITALS: BP 164/77
== END 2025-01-26 03:49 | disposition home or self-care (01) ==
LOC: ER 00:12
PROVIDERS: Emergency Medicine
DX: R07.89 Other chest pain (principal); I48.91 Unspecified atrial fibrillation; I10 Essential (primary) hypertension; E03.9 Hypothyroidism, unspecified; Z88.7 Allergy status to serum and vaccine; Z88.5 Allergy status to narcotic agent; Z79.890 Hormone replacement therapy; Z79.899 Other long term (current) drug therapy
CPT/HCPCS: 71045; 80053; 83880; 84484; 85025; 93005; 93010; 99285-25

== ENCOUNTER 2025-01-30 20:33 | Emergency (ER) | payer OTHER ==
[~2025-01-30] VITALS: Ht 162.6 cm; Wt 81.7 kg
[~2025-01-30 20:33] MED LIST changes: +LOSA50 PO
[2025-01-30 21:11] LABS: BASOPHILS ABSOLUTE AUTO 0.03 K/mm3 (0.00-0.23); BASOPHILS PERCENT AUTO 1 % (0-2); EOSINOPHILS ABSOLUTE AUTO 0.08 K/mm3 (0.00-0.68); EOSINOPHILS PERCENT AUTO 2 % (0-6); Hematocrit 37.4 % (33.0-51.0); Hemoglobin 12.6 g/dL (11.5-16.0); IMMATURE GRAN ABSOLUTE AUTO 0.01 K/mm3 (0.00-0.10); IMMATURE GRAN PERCENT AUTO 0 % (0-1); LYMPHOCYTES ABSOLUTE AUTO 1.37 K/mm3 (0.84-5.20); LYMPHOCYTES PERCENT AUTO 29 % (21-46); MONOCYTES ABSOLUTE AUTO 0.68 K/mm3 (0.16-1.47); MONOCYTES PERCENT AUTO 14 % (4-13); Mean Corpuscular HGB Conc 33.7 g/dL (31.5-36.5); Mean Corpuscular Volume 95 fL (80-100); NEUTROPHILS ABSOLUTE AUTO 2.59 K/mm3 (1.96-9.15); NEUTROPHILS PERCENT AUTO 54 % (41-73); NRBC ABSOLUTE 0.00 K/mm3 (0.00-0.02); NRBC Auto 0.0 /100 WBC (0.0-0.2); Platelet Count 243 K/mm3 (150-400); RDW Coefficient Variation 13.4 % (11.7-14.2); RDW Standard Deviation 47.2 fL (35.1-46.3)
[2025-01-30 21:21] LABS: Alanine Aminotransfer (ALT/SGP 30.0 U/L (12-78); Albumin, Blood 4.1 g/dL (3.4-5.0); Albumin/Globulin Ratio 1.4 (0.8-1.8); Anion Gap 8.0 mmol/L (3-11); Aspartate Aminotrans (AST/SGOT 35.0 U/L (12-37); Bilirubin, Total 0.7 mg/dL (0.1-1.0); Blood Urea Nitrogen 26.0 mg/dL (8-24); CO2, Blood 28.0 mmol/L (21-32); Calcium, Blood 8.9 mg/dL (8.5-10.1); Chloride, Blood 106.0 mmol/L (98-108); Creatinine, Blood 1.02 mg/dL (0.40-1.00); Globulin, Blood 3.0 g/dL (2.2-4.0); Glucose, Blood 106.0 mg/dL (70-99); Potassium, Blood 5.0 mmol/L (3.5-5.5); Sodium, Blood 137.0 mmol/L (136-145); Total Protein, Blood 7.1 g/dL (6.4-8.2)
[2025-01-30] MEDS ORDERED: Pantoprazole Sodium 40 MG Injection IV ONE (23:20)
[2025-01-31 05:00] VITALS: BP 174/82
== END 2025-01-31 05:18 | disposition home or self-care (01) ==
LOC: ER 20:33
PROVIDERS: Student in an Organized Health Care Education/Training Program
DX: I71.21 Aneurysm of the ascending aorta, without rupture (principal); I10 Essential (primary) hypertension; E03.9 Hypothyroidism, unspecified; Z79.02 Long term (current) use of antithrombotics/antiplatelets; Z79.899 Other long term (current) drug therapy; Z88.7 Allergy status to serum and vaccine; Z88.5 Allergy status to narcotic agent
CPT/HCPCS: 71046; 71275; 80053; 83690; 84484; 85025; 93005; 93010; 96374; 99285-25; A9270; J2470; Q9967